=== PATIENT | female | born 1960 | race Caucasian/White ===

== ENCOUNTER 2020-07-17 15:48 | Outpatient (REF) | payer OTHER, SELFPAY | END 2020-07-17 15:49 | disposition home or self-care (01) | LOC: HO.LAB 15:48 | PROVIDERS: Visit Provider Internal Medicine | DX: Z20.828 Contact with and (suspected) exposure to other viral communicable diseases (principal) | CPT/HCPCS: C9803; U0003 ==

== ENCOUNTER 2020-10-13 07:13 | Outpatient (REF) | payer OTHER, SELFPAY ==
[2020-10-13 11:29] LABS: Glucose Urine UA NEG (NEG); Leukocyte Esterase Urine NEG (NEG); Nitrite Urine NEG (NEG); PH 5.5 (5.0-8.0); Urine Blood NEG (NEG); Urine Ketones NEG (NEG); Urine Protein NEG (NEG-TRACE)
[2020-10-13 11:31] LABS: Appearance Urine CLEAR; Color Urine YELLOW
[2020-10-13 11:38] LABS: Hematocrit 44.4 % (37-47); Hemoglobin 15.2 g/dl (12.0-16.0); Mean Corpuscular HGB Conc 34.2 g/dl (31.0-35.0); Mean Corpuscular Hemoglobin 30.9 pg (27.0-33.0); Mean Corpuscular Volume 90.2 fL (80-98); Mean Platelet Volume 11.4 fL (9.4-12.3); Platelet Count 267 X10*3/uL (160-400); Red Blood Count 4.92 X10*6/uL (4.20-5.50); Red Cell Distribution Width 12.6 % (11.0-16.0); White Blood Count 5.9 X10*3/uL (4.8-10.8)
[2020-10-13 11:53] LABS: Alanine Aminotransferase 18 U/L (0-31); Albumin Level 4.3 g/dL (3.5-5.0); Alkaline Phosphatase 82 U/L (39-117); Anion Gap 13 (12-20); Aspartate Amino Transferase 19 U/L (5-31); Bilirubin Total 0.7 mg/dL (0.0-1.0); Blood Urea Nitrogen 17 mg/dL (9-16); Calcium 9.2 mg/dL (8.4-10.2); Carbon Dioxide 27 mmol/L (22-29); Chloride 104 mmol/L (96-108); Cholesterol 209 mg/dL; Estimated Glomerular Filt Rate > 60; Glucose Fasting 97 mg/dL (60-99); HDL Cholesterol 57 mg/dL; LDL Cholesterol Calculated 120 mg/dl; Potassium 4.3 mmol/L (3.3-5.1); Sodium 140 mmol/L (135-145); Total Protein 6.9 g/dL (6.5-8.0); Triglycerides 160 mg/dL
[2020-10-13 12:01] LABS: TSH reflex Free T4 2.02 uIU/mL (0.32-4.0)
[2020-10-13 12:10] LABS: RBC Urine 0-2 /HPF (0); Squamous Epithelial Cell Urine 1+ /LPF; WBC Urine 0-2 /HPF (0-4)
== END 2020-10-13 07:14 | disposition home or self-care (01) ==
LOC: HO.HMGCLDS 07:13
PROVIDERS: PCP Internal Medicine; Visit Provider Internal Medicine
DX: Z00.00 Encounter for general adult medical examination without abnormal findings (principal)
CPT/HCPCS: 36415; 80053; 80061; 81001; 84443; 85027

== ENCOUNTER 2021-01-26 09:16 | Outpatient (REF) | payer OTHER, SELFPAY ==
[2021-01-26 12:16] LABS: Monotest Negative (Negative)
[2021-01-26 13:00] LABS: Influenza A PCR NEGATIVE (Negative); Influenza B PCR NEGATIVE (Negative); Resp Syncy Virus RNA Qual PCR NEGATIVE (Negative); SARS COV2 PCR INHOUSE NEGATIVE (Negative)
[2021-01-27 18:06] LABS: EBV-VCA IgG Ab >750.00 U/mL
== END 2021-01-26 09:17 | disposition home or self-care (01) ==
LOC: HO.HMGCLDS 09:16
PROVIDERS: PCP Internal Medicine; Visit Provider Nurse Practitioner Family
DX: J02.9 Acute pharyngitis, unspecified (principal)
CPT/HCPCS: 0241U; 36415; 86308; 86664; 86665

== ENCOUNTER 2021-05-19 10:09 | Outpatient (REF) | payer OTHER, SELFPAY ==
--- NOTE | ~2021-05-19 | XR_ITS ---
EXAMINATION: XR WRIST, LEFT CLINICAL INFORMATION: Trauma, pain COMPARISON: Radiographs left wrist 08/29/2014. TECHNIQUE: Left wrist is imaged in 4 views. FINDINGS: There is no fracture or dislocation or destructive process. The ulnar variance is neutral. The pronator quadratus fat pad appears normal. There is small chronic cyst mid aspect carpal navicular. Degenerative joint changes are present lateral carpus at first carpometacarpal joint. XR/XR wrist LT min 3V IMPRESSION: 1. No fracture or dislocation. 2. Osteoarthritis first carpometacarpal joint.
== END 2021-05-19 10:10 | disposition home or self-care (01) ==
LOC: HO.HMGCLDS 10:09
PROVIDERS: PCP Internal Medicine; Visit Provider Physician Assistant Medical
DX: S69.92XA Unspecified injury of left wrist, hand and finger(s), initial encounter (principal)
CPT/HCPCS: 73110

== ENCOUNTER 2022-02-01 09:27 | Outpatient (REF) | payer OTHER, SELFPAY ==
--- NOTE | ~2022-02-01 | XR_ITS ---
EXAMINATION: XR RIBS, LEFT CLINICAL INFORMATION: Contusion of bronchial wall of the thorax COMPARISON: Previous chest and right rib x-ray March 2009 TECHNIQUE: 3 views of the left ribs were obtained. FINDINGS: Lungs are clear. No consolidation, pneumothorax, or pleural effusion. The cardiomediastinal silhouette and pulmonary vasculature are normal. There is question of a nondisplaced fracture of the right anterior 10th rib. This is seen on one view only. No other rib fracture. Degenerative changes of the spine. XR/XR ribs LT min 3V w CXR1V IMPRESSION: No evidence for acute disease in the chest. Question nondisplaced right anterior 10th rib fracture.
== END 2022-02-01 09:28 | disposition home or self-care (01) ==
LOC: HO.XRAY 09:27
PROVIDERS: PCP Internal Medicine; Visit Provider Internal Medicine
DX: S20.212D Contusion of left front wall of thorax, subsequent encounter (principal)
CPT/HCPCS: 71101

== ENCOUNTER 2022-05-07 06:41 | Outpatient (REF) | payer OTHER, SELFPAY ==
[2022-05-07 11:09] LABS: MANUAL DIFF FLAG NO
[2022-05-07 11:16] LABS: Basophils Absolute Auto 0.1 X10*3/uL (0.0-0.2); Basophils Percent Auto 1.6 % (0-2); Eosinophils Absolute Auto 0.1 X10*3/uL (0.0-0.4); Hematocrit 45.2 % (37.0-47.0); Hemoglobin 15.1 g/dl (12.0-16.0); Imm Gran Abs Auto 0.01 X10*3/uL (0.00-0.03); Imm Gran Pct Auto 0.2 % (0.0-0.4); Lymphocytes Absolute Auto 1.4 X10*3/uL (1.2-4.9); Lymphocytes Percent Auto 27.5 % (20-40); Mean Corpuscular HGB Conc 33.4 g/dl (31.0-35.0); Mean Corpuscular Hemoglobin 30.3 pg (27.0-33.0); Mean Corpuscular Volume 90.6 fL (80.0-98.0); Mean Platelet Volume 11.2 fL (9.4-12.3); Monocytes Absolute Auto 0.4 X10*3/uL (0.1-1.2); Monocytes Percent Auto 7.7 % (2-11); Platelet Count 232 X10*3/uL (160-400); Red Blood Count 4.99 X10*6/uL (4.20-5.50); Red Cell Distribution Width 12.3 % (11.0-16.0); White Blood Count 4.9 X10*3/uL (4.8-10.8)
[2022-05-07 11:52] LABS: Alanine Aminotransferase 13 U/L (0-31); Albumin Level 4.2 g/dL (3.5-5.0); Alkaline Phosphatase 80 U/L (39-117); Anion Gap 15 (12-20); Aspartate Amino Transferase 17 U/L (5-31); Bilirubin Total 0.6 mg/dL (0.0-1.0); Blood Urea Nitrogen 15 mg/dL (9-16); Calcium 9.5 mg/dL (8.4-10.2); Carbon Dioxide 27 mmol/L (22-29); Chloride 105 mmol/L (96-108); Cholesterol 178 mg/dL; Estimated Glomerular Filt Rate > 60; Glucose Fasting 86 mg/dL (60-99); HDL Cholesterol 56 mg/dL; LDL Cholesterol Calculated 106 mg/dl; Potassium 4.6 mmol/L (3.3-5.1); Sodium 142 mmol/L (135-145); Total Protein 6.8 g/dL (6.5-8.0); Triglycerides 80 mg/dL
[2022-05-07 11:54] LABS: TSH reflex Free T4 1.22 uIU/mL (0.32-4.0); Vitamin D 25-OH Total 43.7 ng/mL (>30)
== END 2022-05-07 06:42 | disposition home or self-care (01) ==
LOC: HO.HMGCLDS 06:41
PROVIDERS: PCP Internal Medicine; Visit Provider Internal Medicine
DX: Z00.00 Encounter for general adult medical examination without abnormal findings (principal); E55.9 Vitamin D deficiency, unspecified
CPT/HCPCS: 36415; 80053; 80061; 82306; 84443; 85025

== ENCOUNTER 2023-01-23 14:03 | Outpatient (REF) | payer OTHER, SELFPAY ==
--- NOTE | ~2023-01-23 | XR_ITS ---
EXAMINATION: XR HAND, RIGHT CLINICAL INFORMATION: Unspecified osteoarthritis COMPARISON: None available. TECHNIQUE: PA, lateral, and oblique views of the right hand. FINDINGS: There is loss of PIP and DIP joint spaces with periarticular spurring involving the DIP joints of second third and fifth and PIP joints second through fifth digits. No visible acute fracture, dislocation or subluxation seen. No soft tissues swelling seen. XR/XR hand RT 2V IMPRESSION: Degenerative arthritic changes PIP and DIP joints. No visible acute fracture or dislocation seen.
== END 2023-01-23 14:04 | disposition home or self-care (01) ==
LOC: HO.HMGCLDS 14:03
PROVIDERS: PCP Internal Medicine; Visit Provider Internal Medicine
DX: M19.90 Unspecified osteoarthritis, unspecified site (principal)
CPT/HCPCS: 73120

== ENCOUNTER 2023-02-03 09:26 | Day surgery (SDC) | payer OTHER, SELFPAY ==
[2023-02-01 15:20] VITALS: BMI 26.5
--- NOTE | 2023-02-02 10:03 | HO.ANESPROP2 ---
HPI - Anesthesia Eval Consult details Narrative: 62yo F for Colonoscopy PMFSH Active Problems Active Problems: All Active Problems (Updated 01/23/23 @ 14:00 by Andrew Sheriff MD) Osteoarthritis (Acute) Vitamin D deficiency (Acute) Contusion, chest wall (Acute) Left wrist injury (Acute) Pharyngitis (Acute) Sore throat (Acute) Thumb pain (Acute) Normal Pap smear (Acute) Annual physical exam (Acute) Past Medical History Medical History Annual physical exam Anxiety Environmental allergies Normal Pap smear Thumb pain Family History Family History Father Hypertension Diabetes Mother Cancer Surgical History Surgical History H/O shoulder surgery History of carpal tunnel surgery Social History Social History Housing: House Alcohol intake: current Alcohol intake frequency: a few times a week Patient Tobacco Use Status: Former Tobacco user e-Cigarette/Vaping Use: Never Used Current occupational status: employed Cognitive needs: No Hearing needs: No Vision needs: Yes Meds Allergies Allergy/AdvReac Type Severity Reaction Status Date / Time Seasonal Allergies Allergy Mild sneezing, Verified 01/23/23 14:05 runny nose Home Medications Medication Instructions Recorded Confirmed Last Taken Type No Known Home Meds 01/23/23 01/23/23 Unknown History Exam Exam Date and Time: February 02, 2023 1003 Height,Weight and Vital Signs: Height 5 ft 5.5 in Weight 73.397 kg Assessment and Plan Assessment Anesthesia Assessment: Chart Reviewed
--- NOTE | 2023-02-03 09:47 | HO.ANESPROP2 ---
[facility] Active Problems Active Problems: All Active Problems (Updated 02/02/23 @ 12:26 by Rosetta Menjivar) Sore throat (Acute) Pharyngitis (Acute) Left wrist injury (Acute) Contusion, chest wall (Acute) Vitamin D deficiency (Acute) Osteoarthritis (Acute) Thumb pain (Acute) Normal Pap smear (Acute) Annual physical exam (Acute) Past Medical History Medical History Annual physical exam Anxiety Environmental allergies Normal Pap smear Seasonal allergies Thumb pain Family History Family History Father Hypertension Diabetes Mother Cancer Family history of problems with anesthesia: No Surgical History Surgical History H/O shoulder surgery History of carpal tunnel surgery History of Problems with Anesthesia: Yes (n&n) Social History Social History Housing: House Alcohol intake: current Alcohol intake frequency: a few times a week Patient Tobacco Use Status: Former Tobacco user e-Cigarette/Vaping Use: Never Used Are you DNR?: No Advance Directives: No Advance Directives Information Provided: Yes Nutrition Risks: No Nutritional Risk Current occupational status: employed Cognitive needs: No Hearing needs: No Vision needs: Yes Meds Allergies Allergy/AdvReac Type Severity Reaction Status Date / Time No Known Allergies Allergy Verified 02/03/23 09:34 Active Medications: Current Medications Lactated Ringer's (Lr) 1,000 mls @ 100 mls/hr IVCONT .Q10H IRENE Ondansetron HCl (Ondansetron Hcl 4 Mg/2 Ml Vial) 4 mg IVPUSH ONCE PRN PRN Reason: Nausea and Vomiting Home Medications Medication Instructions Recorded Confirmed Last Taken Type No Known Home Meds 01/23/23 01/23/23 Unknown History Exam Exam Date and Time: February 03, 2023 0947 Height,Weight and Vital Signs: Height 5 ft 5.5 in Weight 73.397 kg Airway Mallampati Class: II TM Dist: >3cm Neck ROM: Full Loose/Missing/Broken Teeth: No Heart: rrr Lungs: clear Assessment and Plan Final Anesthetic Review Family History of Problems with Anesthesia: No History of Problems with Anesthesia: Yes (n&n) NPO: Yes ASA Class: I Final Preanesthetic Review: No Changes in Pt Med Stat, Meds/Allgs Chart Reviewed, Consent Obtained/Reviewed and Anes Risks/Benef Reviewed Patient Risk: Low Anesthetic Plan Anesthetic Plan: MAC: Disposition: Standard PACU
[2023-02-03 09:56] VITALS: BP 149/63; PULSE 63; RESP 18; TEMP 36.6; O2SAT 98
--- NOTE | 2023-02-03 10:02 | MHC.SHP ---
Pre-Procedural Eval Section A Date of Service: 02/03/23 The patient is an INPATIENT: No The History & Physical has been completed within 30 days and I have reviewed it.: No Section B Chief Complaint: Encounter for screening for malignant neoplasm of Relevant Family History (Specify if Yes): No Relevant Social History: Tobacco Use ( former smoker) Present Medications: see Short Stay Collaborative assessment Medical History: Significant History (Anxiety Environmental allergies) History of Previous Operations: Relevant previous surgery/procedure and date(s) (H/O shoulder surgery History of carpal tunnel surgery) Allergies: Allergies Allergy/AdvReac Type Severity Reaction Status Date / Time No Known Allergies Allergy Verified 02/03/23 09:34 Review of Systems Sugical H&P ROS: Negative: Constitution, Cardiovascular, Respiratory and Gastrointestinal Exam Surgical H&P Exam: Normal: Heart, Normal: Lungs, Normal: Extremities and Normal: Abdomen Plan Diagnosis/Plan: Unchanged I have reviewed the history and physical and performed a pertinent physical examination on my patient. No changes have occurred unless specified. Time Spent With Patient Time: Total time managing care of this patient today ____ minutes.
--- NOTE | 2023-02-03 10:16 | W.PM.OPN ---
Operative Note Operative Note Date of Service: 02/03/23 Narrative: COLONOSCOPY TILL CECUM WITH BIOPSIES Pre-op diagnosis: colon cancer screening (1st colonoscopy) Post-op diagnosis:? colon polyp, diverticulosis, hemorrhoids Endoscopist:? Edna Hernandez MD Anesthesia:?MAC Consent: Indications for the procedure and potential complications of bleeding, perforation, reaction to medications and missed diagnosis were discussed with the patient and informed consent was obtained. Instrument: Olympus PCF H 190 L variable stiffness pediatric colonoscope Monitoring: Vital signs and clinical assessment, intermittent blood pressure monitoring, continuous EKG monitoring, Pulse oximetry and Carbon Dioxide monitoring were done throughout the procedure. Please see anesthesia flowsheet. Colon withdrawl time was 18 minutes. Procedure: The patient was placed in the left lateral decubitis position and pre-procedure medications were administered. After a digital rectal examination of the ano-rectum, the video colonoscope was inserted into the rectum and advanced through the colon to the cecum. The colonoscope was slowly withdrawn in a retrograde panoramic fashion and the colon mucosa was carefully examined including a retroflexed view of the rectum. Findings and interventions are described below. Procedure Difficulty: Without difficulty Findings: Terminal Ileum: Not evaluated Cecum: One 2-3 mm sessile polyp - removed with a cold biopsy Ascending Colon: Normal Transverse Colon: Normal Descending Colon: moderate diverticulosis Sigmoid Colon: Severe diverticulosis with luminal narrowing Rectum: Normal Ano-rectum: Moderate internal hemorrhoids Colon preparation: Good after some irrigation Impression and Post Procedure Diagnosis: Colonoscopy Findings: One small polyp removed Moderate to severe diverticulosis seen in the left colon Moderate hemorrhoids on retroflexed exam. Plan: Await pathology results Patient has an appointment on 02/17/23 in the GI Clinic with Amber Callaway FNP-BC. Repeat Colonoscopy interval based on path results - in 5 years if polyps are adenomatous and 10 years if polyps are hyperplastic. Above findings were reviewed with the patient and colon polyps and diverticulosis handouts were given in the discharge area
[2023-02-03 10:54] VITALS: BP 114/48; PULSE 68; RESP 20; TEMP 36.3; O2SAT 95
[2023-02-03 11:09] VITALS: BP 127/62; PULSE 50; RESP 18; TEMP 36.4; O2SAT 100
== END 2023-02-03 11:44 | disposition home or self-care (01) ==
PROVIDERS: PCP Internal Medicine; Visit Provider Internal Medicine Gastroenterology
PROC: 0DJD8ZZ Inspection of Lower Intestinal Tract, Via Natural or Artificial Opening Endoscopic (ICD-10-PCS; CPT 45378; principal; 2023-02-03 11:00)
DX: Z12.11 Encounter for screening for malignant neoplasm of colon (principal); K63.5 Polyp of colon; K57.30 Diverticulosis of large intestine without perforation or abscess without bleeding; K64.8 Other hemorrhoids; E55.9 Vitamin D deficiency, unspecified; F41.9 Anxiety disorder, unspecified; Z87.891 Personal history of nicotine dependence; Z79.899 Other long term (current) drug therapy
CPT/HCPCS: 45380; 88305

== ENCOUNTER 2023-02-17 11:33 | Outpatient (AMB) | payer OTHER, SELFPAY ==
[2023-02-17 11:37] VITALS: BP 131/63; PULSE 55; BMI 26.4
--- NOTE | 2023-02-17 11:37 | MHC.OFFVIS ---
Intake Vital Signs 02/17/23 11:37 Height 5 ft 5.5 in Weight 160 lb 14.999 oz BMI 26.4 BP 131/63 Blood Pressure Location Lt brachial Position Sitting Pulse 55 Intake Visit Reasons: S/p colon-David Intake Note: Sandra presents in the office as a follow up colonoscopy. CC: She states she is just here for the results to the colonoscopy. 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 Denies any issues with anesthesia in the past.? Denies any history of sleep apnea.? No history infectious diseases in the past or present.? Not on any anticoagulation therapy.? No family or personal history of colon cancer or polyps.? Patient denies melena, hematochezia, unintentional weight loss or ribbon like stools.? Discussed at length the pre-procedure,? prep, diet & medications as well as what to expect prior, during and after the procedure.?? Stressed the importance of good bowel prep. ?Recommended the use of Vaseline or Calmoseptine OTC & baby wipes with bowel movements to promote comfort.? ?Patient verbalizes understanding and agrees to plan of care.? She was given the opportunity to ask questions and all questions answered.? We will see her after the procedure.? Plan Medications New bisacodyl (Dulcolax (bisacodyl)) take 2 tabs at noon the day before your colonoscopy 10 mg (2 x 5 mg) PO ONCE 2 tabs 0RF 1 day Z12.11 polyethylene glycol 3350 (Miralax) As directed by gastroenterology department at [facility] 238 grams PO ONCE 238 grams 0RF Z12.11 COLONOSCOPY SCREENING Findings: Terminal Ileum: Not evaluated Cecum:? One 2-3 mm sessile polyp -? removed with a cold biopsy Ascending Colon:? Normal Transverse Colon:? Normal Descending Colon: ? moderate diverticulosis Sigmoid Colon:? Severe diverticulosis with luminal narrowing Rectum:? Normal Ano-rectum:? Moderate internal hemorrhoids Colon preparation:? Good? after some irrigation Impression and Post Procedure Diagnosis: Colonoscopy Findings: One small polyp removed Moderate to severe diverticulosis seen in the left colon Moderate hemorrhoids on retroflexed exam. Plan: Await pathology results Repeat Colonoscopy interval based on path results - in 5 years if polyps are adenomatous and 10 years if polyps are hyperplastic. PATHOLOGY RESULTS Diagnosis Colon, cecal polyp:? Colonic mucosa with lymphoid aggregates and no specific change; no evidence of adenomatous dysplasia. TODAY'S VISIT: Patient is here today for follow-up and to discuss colonoscopy results. Patient denies any ill effects from the prep, anesthesia or procedure itself. Patient states that she has been feeling well. Discussed with patient colonoscopy results. This was her 1st colonoscopy. Colonic mucosa with lymphoid aggregates without dysplasia found. Patient will need to repeat colonoscopy in 10 years. Diverticulosis of left colon with moderate hemorrhoids. Patient reports that she eats lots of fruits and vegetables. Patient states that she likes to eat raw vegetables. Patient denies any abdominal pain or discomfort. Denies any GI concerning symptoms. [facility] Medical History (Updated 02/17/23 @ 11:47 by Amber Callaway [facility]) Annual physical exam Anxiety Diverticulosis Environmental allergies Normal Pap smear Seasonal allergies Thumb pain Surgical History H/O shoulder surgery History of carpal tunnel surgery Hx of colonoscopy Family History Father Hypertension Diabetes Mother Cancer Social History Housing: House Alcohol intake: current Alcohol intake frequency: a few times a week Patient Tobacco Use Status: Former Tobacco user e-Cigarette/Vaping Use: Never Used Current occupational status: employed Cognitive needs: No Hearing needs: No Vision needs: Yes Review of Systems Const Denies weight gain and Denies weight loss ENT Reports no additional complaints, Denies dysphagia and Denies odynophagia Card Reports no additional complaints Resp Reports no additional complaints GI Denies abdominal pain, Denies belching, Denies melena, Denies bloating, Denies change in bowel habits, Denies dysphagia, Denies excessive flatus, Denies dyspepsia, Denies heartburn, Denies diarrhea, Denies loose stools, Denies nausea, Denies odynophagia and Denies vomiting Musc Reports no additional complaints Neuro Reports no additional complaints Psych Reports no additional complaints Endo Reports no additional complaints Physical Exam Vital Signs: Last Vital Signs Pulse 55 02/17/23 11:37 BP 131/63 02/17/23 11:37 BMI result Body Mass Index 26.4 Const General: healthy appearing, no acute distress and well developed Nutritional Appearance: well nourished Orientation/consciousness: patient oriented x3 HEENT Head: Yes normal to inspection, Yes normocephalic and Yes atraumatic Face and sinus: Yes normal facial exam Mouth: Normal oral and palatal mucosa present Throat: Yes posterior oropharynx normal, Yes tonsils normal and Yes uvula midline Eyes General: appearance normal, both eyes and all related structures Neck Neck: Yes normal visual inspection, Yes full ROM and Yes trachea midline Thyroid: Thyroid normal Resp Effort & Inspection: normal respiratory effort, able to speak in complete sentences, no tracheal deviation and symmetric chest movement Auscultation: clear to auscultation bilaterally Cardio Rate: regular rate Heart sounds: S1 normal heart sound present and S2 normal heart sound present GI Inspection: Yes normal to inspection and No distended Palpation (GI): Soft to palpation, not firm, nontender and No hepatosplenomegaly present Auscultation: normal bowel sounds General: Yes no CVA tenderness Back/Spine/Pelvis Back: no CVA tenderness Skin General skin exam: elasticity normal, turgor normal and dry skin Neuro General: patient oriented x3 Psych Appearance: grossly normal Mental Status: mental status grossly normal Speech and movement: Normal speech and movement present Affect: normal affect Assessment & Plan Assessment & Plan (1) Diverticulosis: Code(s): K57.90 - Diverticulosis of intestine, part unspecified, without perforation or abscess without bleeding Plan: Moderate to severe diverticulosis of left colon. Discussed with patient in detail high-fiber diet. Information about diverticulosis, diet and high-fiber diet discussed with patient. (2) Status post colonoscopy: Code(s): Z98.890 - Other specified postprocedural states Plan: Benign polyps found. Patient will need to repeat colonoscopy in 10 years, sooner if clinically necessary. Patient will follow-up with us on as-needed basis. She is agreeable to this plan and verbalizes understanding of instructions. She was given the opportunity to ask questions and all questions answered. Thank you for allowing me to participate in her care Coding Level of Care Code Est Pt Level 3 (17382) Diagnoses Diverticulosis K57.90 Status post colonoscopy Z98.890 Time Spent (min) 25 Comment 15 minute spent with patient and additional 10 minutes spent reviewing her records
== END 2023-02-17 14:14 | disposition home or self-care (01) ==
PROVIDERS: PCP Internal Medicine; Visit Provider Nurse Practitioner Family
DX: K57.90 Diverticulosis of intestine, part unspecified, without perforation or abscess without bleeding (principal); Z98.890 Other specified postprocedural states
CPT/HCPCS: 99213

== ENCOUNTER → 2023-02-17 11:33 | Outpatient (BNVA) | payer OTHER, SELFPAY | PROVIDERS: PCP Internal Medicine; Visit Provider Nurse Practitioner Family ==

== ENCOUNTER 2023-03-14 12:21 | Outpatient (AMB) | payer OTHER, SELFPAY ==
[2023-03-14 12:28] VITALS: BMI 26.2
--- NOTE | 2023-03-14 12:28 | A.OFFVIS_ITS ---
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 Patient reports locking and catching of her right middle finger with pain. Also has numbness and tingling for about 4-5 months, worsens at night time. Hx of CTR of B/L hands in mid 90's. Denies any injury or trauma. States she is not able to make a full close fist due to stiffness. 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 She states she has pain, catching, locking, numbness and tingling of her finger which is aggravated at night. She is unable to make a fist due to stiffness in her finger. 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 [facility] Medical History (Updated 03/09/23 @ 14:47 by Mae Womack MD) Annual physical exam Anxiety Diverticulosis Environmental allergies Normal Pap smear Seasonal allergies Thumb pain Surgical History H/O shoulder surgery History of carpal tunnel surgery Hx of colonoscopy Family History Father Hypertension Diabetes Mother Cancer Social History (Updated 03/14/23 @ 12:35 by Jaquelin Malloy [facility]) Housing: House Alcohol intake: current Alcohol intake frequency: a few times a week Patient Tobacco Use Status: Former Tobacco user e-Cigarette/Vaping Use: Never Used Current occupational status: employed 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 Cognitive needs: No Hearing needs: No Vision needs: Yes Review of Systems Const All systems reviewed & are unremarkable except as noted in HPI and below Physical Exam Vital Signs: BMI result Body Mass Index 26.2 Const General: cooperative, healthy appearing, comfortable, no acute distress, well developed and alert Orientation/consciousness: patient oriented x3 HEENT Head: Yes normal to inspection, Yes normocephalic and Yes atraumatic Eyes General: appearance normal, both eyes and all related structures Resp Effort & Inspection: normal respiratory effort and able to speak in complete sentences Cardio Rate: regular rate Peripheral pulses: Peripheral pulses 2+ throughout GI Palpation (GI): Soft to palpation Skin Lesions: no lesions Rashes: no rashes Neuro General: patient oriented x3 Extrem Other: Right middle finger: Tender nodule along the A1 zo with active catching and locking. NVI. Assessment & Plan Assessment & Plan (1) Trigger finger, right middle finger: Code(s): M65.331 - Trigger finger, right middle finger Plan We discussed options which include conservative vs operative treatment. Since the patient has been symptomatic for several months and it is impacting their daily life, the decision was made to undergo Trigger release. We discussed risk, benefits and alternatives. Risk including but not limited to infection, stiffness, ongoing trigger or catching. She does understand all this and would like to proceed with right middle finger trigger release with Dr. Booker. She will be booked accordingly. Patient Instructions: Scribed for Apolinar Arellano PA-C, by Samuel Hoover medical technician assistant, on 03/14/2023 at 12:30 PM IBRAHIMA. IApolinar PA-C, have personally reviewed and agree with the information entered by the scribe. Coding Level of Care Code New Pt Level 4 (32835) Diagnoses Trigger finger, right middle finger M65.331
== END 2023-03-14 12:59 | disposition home or self-care (01) ==
PROVIDERS: PCP Internal Medicine; Visit Provider Physician Assistant
DX: M65.331 Trigger finger, right middle finger (principal)
CPT/HCPCS: 99204

== ENCOUNTER → 2023-03-14 12:21 | Outpatient (BNVA) | payer OTHER, SELFPAY | PROVIDERS: PCP Internal Medicine; Visit Provider Physician Assistant | DX: M65.331 Trigger finger, right middle finger (principal) | CPT/HCPCS: 99202 ==

== ENCOUNTER 2023-05-04 07:00 | Outpatient (REF) | payer OTHER, SELFPAY ==
[2023-05-04 11:00] LABS: MANUAL DIFF FLAG NO
[2023-05-04 11:13] LABS: Basophils Absolute Auto 0.1 X10*3/uL (0.0-0.2); Basophils Percent Auto 1.4 % (0-2); Eosinophils Absolute Auto 0.1 X10*3/uL (0.0-0.4); Eosinophils Percent Auto 1.8 % (0-4); Hematocrit 45.2 % (37.0-47.0); Hemoglobin 15.3 g/dl (12.0-16.0); Imm Gran Abs Auto 0.02 X10*3/uL (0.00-0.03); Imm Gran Pct Auto 0.4 % (0.0-0.4); Lymphocytes Absolute Auto 1.5 X10*3/uL (1.2-4.9); Lymphocytes Percent Auto 29.8 % (20-40); Mean Corpuscular HGB Conc 33.8 g/dl (31.0-35.0); Mean Corpuscular Hemoglobin 30.2 pg (27.0-33.0); Mean Corpuscular Volume 89.2 fL (80.0-98.0); Mean Platelet Volume 11.7 fL (9.4-12.3); Monocytes Absolute Auto 0.3 X10*3/uL (0.1-1.2); Monocytes Percent Auto 6.7 % (2-11); Neutrophils Percent Auto 59.9 % (45-73); Platelet Count 221 X10*3/uL (160-400); Red Blood Count 5.07 X10*6/uL (4.20-5.50); Red Cell Distribution Width 12.3 % (11.0-16.0)
[2023-05-04 12:01] LABS: Alanine Aminotransferase 14 U/L (0-31); Albumin Level 4.4 g/dL (3.5-5.0); Alkaline Phosphatase 79 U/L (39-117); Anion Gap 14 (12-20); Aspartate Amino Transferase 20 U/L (5-31); Bilirubin Total 0.8 mg/dL (0.0-1.0); Blood Urea Nitrogen 21 mg/dL (9-16); Calcium 9.8 mg/dL (8.4-10.2); Carbon Dioxide 25 mmol/L (22-29); Chloride 106 mmol/L (96-108); Cholesterol 200 mg/dL (<200); Estimated Glomerular Filt Rate > 60; Glucose Fasting 101 mg/dL (60-99); HDL Cholesterol 62 mg/dL (>40); LDL Cholesterol Calculated 122 mg/dL (<100); Potassium 4.1 mmol/L (3.3-5.1); Sodium 141 mmol/L (135-145); Total Protein 7.6 g/dL (6.5-8.0); Triglycerides 82 mg/dL (<150); Vitamin D 25-OH Total 62.1 ng/mL (>30)
== END 2023-05-04 07:01 | disposition home or self-care (01) ==
LOC: HO.HMGCLDS 07:00
PROVIDERS: PCP Internal Medicine; Visit Provider Internal Medicine
DX: Z00.00 Encounter for general adult medical examination without abnormal findings (principal); E55.9 Vitamin D deficiency, unspecified
CPT/HCPCS: 36415; 80053; 80061; 82306; 85025

== ENCOUNTER 2023-05-11 07:29 | Outpatient (AMB) | payer OTHER, SELFPAY ==
[2023-05-11 07:32] VITALS: BP 118/64; PULSE 63; O2SAT 98; BMI 26.5
--- NOTE | 2023-05-11 07:32 | A.OFFPC_ITS ---
Vital Signs 05/11/23 07:32 Height 5 ft 5.5 in Weight 162 lb BMI 26.5 BP 118/64 Blood Pressure Location Lt brachial Position Sitting Pulse 63 Pulse Source Pulse Oximeter Pulse Oximetry (%) 98 Oxygen Delivery Method Room Air Intake Visit Reasons: Annual PE Intake Note: Pt is here today for PE. Allergies shellfish derived Allergy (Verified 05/11/23 07:35) Anaphylaxis Medication List - Last Reconciled 05/11/23 by Mae Womack MD biotin (Hair, Skin and Nails (biotin)) mcg PO calcium-vit D3-mag gly-zinc 400 mg-83.3 mcg -166.7 mg caps PO multivitamin 1 tab PO DAILY Tobacco use date assessed: 05/11/23 Fall risk assessment: No Falls in past year Last assessed Fall Risk: 05/11/23 Dental Screening Dental Screen Date: 05/11/23 Did you have a dental visit in the last 12 months?: Yes Did you have a dental problem in the last 6 months where you did not have access to dental care?: No Was dental information given to patient?: Patient has dentist HPI Annual PE 2 HPI Details Pt presents for PE PFSH Medical History Diverticulosis Seasonal allergies Thumb pain Normal Pap smear Annual physical exam Anxiety Environmental allergies Surgical History Hx of colonoscopy H/O shoulder surgery History of carpal tunnel surgery Family History Father Hypertension Diabetes Mother Cancer Social History Housing: House Alcohol intake: current Alcohol intake frequency: a few times a week Patient Tobacco Use Status: Former Tobacco user e-Cigarette/Vaping Use: Never Used Current occupational status: employed 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 1. Little interest or pleasure in doing things: not at all 2. Feeling down, depressed, or hopeless: not at all 3. Trouble falling or staying asleep, or sleeping too much: not at all 4. Feeling tired or having little energy: not at all 5. Poor appetite or overeating: not at all 6. Feeling bad about yourself - or that you are a failure or have let yourself or your family down: not at all 7. Trouble concentrating on things, such as reading the newspaper or watching television: not at all 8. Moving or speaking so slowly that other people could have noticed. Or the opposite - being so fidgety or restless that you have been moving around a lot more than usual: not at all 9. Thoughts that you would be better off or of hurting yourself in some way: not at all Total score: 0 Depression Screening Interpretation: Negative Depression Screening Done: Yes Source: Developed by Drs. Cj Boyle, Rachael Pelaez, Mark Zhou and colleagues, with an educational leeann from [employer]. Thrive Questionnaire Date Thrive assessed: 05/11/23 I am a: Patient What is your living situation today?: I have a steady place to live Within the past 12 months, did the food you bought not last and you didn't have the money to get more?: Never true Within the past 12 months, did you worry whether your food would run out before you got money to buy more?: Never true Do you have trouble paying for medicines?: No Do you have trouble getting transportation to medical appointments?: No Do you have trouble paying your heating and electricity bill?: No Do you have trouble taking care of your child, family member or friend?: No Do you have trouble with day-to-day activities such as bathing, preparing meals, shopping, managing finances, etc.?: No Are you currently unemployed and looking for a job?: No Are you interested in more education?: No Please select the resources that you would like help with: None Currently or been in a relationship where the following occur: no concerns reported AUDIT C Alcohol Use Questionnaire (AUDIT-C) 1. How often do you have a drink containing alcohol?: Monthly or less 2. How many drinks containing alcohol do you have on a typical day when you are drinking?: 1 or 2 3. How often do you have six or more drinks on one occasion?: Never Total Score: 1 LINDSAY-7 AMB Questionnaire LINDSAY-7 Date LINDSAY - 7 assessed: 05/11/23 Feeling nervous, anxious, or on edge: 0 = Not at all Not being able to stop or control worryin = Not at all Worrying too much about different things: 0 = Not at all Trouble relaxin = Not at all Being so restless that it is hard to sit still: 0 = Not at all Becoming easily annoyed or irritable: 0 = Not at all Feeling afraid as if something awful might happen: 0 = Not at all Total LINDSAY-7 score (0-4 normal; 5-9 mild; 10-14 moderate; 15-21 severe): 0 Source: Developed by Drs. Cj Boyle, Rachael Pelaez, Mark Zhou and colleagues, with an educational leeann from [employer]. Review of Systems Const All systems reviewed & are unremarkable except as noted in HPI and below Reports no additional complaints Eyes Reports no additional complaints ENT Reports no additional complaints Card Reports no additional complaints GI Reports no additional complaints Reports no additional complaints Physical exam (Primary Care) Vital Signs: Last Vital Signs Pulse 63 05/11/23 07:32 BP 118/64 05/11/23 07:32 Pulse Ox 98 05/11/23 07:32 Oxygen Delivery Method Room Air 05/11/23 07:32 BMI result Body Mass Index 26.5 Tobacco/Smoking Status: Tobacco use Status Tobacco use date assessed 05/11/23 05/11/23 07:39 Patient Tobacco Use Status Former Tobacco user 05/11/23 07:32 e-Cigarette/Vaping Use Never Used 05/11/23 07:32 PHQ-9: PHQ-9 Score PHQ-9: Total score 0 05/11/23 07:39 Depression Screening Interpretation: Negative Thrive Assessment: Date of Thrive Assessment Date Thrive assessed 05/11/23 05/11/23 07:39 Currently or been in a relationship where the following occur: no concerns reported Const General: no acute distress HENMT Head: Yes normal to inspection General nose exam: Normal external nose present Eyes General: appearance normal, both eyes and all related structures Neck Neck: Yes no lymphadenopathy and Yes supple Resp Effort & Inspection: normal respiratory effort Auscultation: clear to auscultation bilaterally Cardio Rhythm: regular rhythm Heart sounds: S1 normal heart sound present and S2 normal heart sound present GI Inspection: Yes normal to inspection Palpation (GI): Soft to palpation Percussion: Yes normal to percussion Auscultation: normal bowel sounds Assessment and Plan Assessment & Plan (1) Annual physical exam: Code(s): Z00.00 - Encounter for general adult medical examination without abnormal findings Plan: WELL BALANCED DIET, REGULAR EXERCISE DISCUSSED, pt is up to date with mammogram/colonoscopy/pap by supervisor line department (2) Trigger finger, right middle finger: Code(s): M65.331 - Trigger finger, right middle finger Plan: f/u with hand surgeon Orders: Orders Comprehensive Traver. Panel Fast 365 Days Z00.00 - Encounter for general adult medical examination without abnormal findings Lipid Panel 365 Days Z00.00 - Encounter for general adult medical examination without abnormal findings Complete Blood Count Auto Diff 365 Days Z00.00 - Encounter for general adult medical examination without abnormal findings TSH reflex Free T4 365 Days Z00.00 - Encounter for general adult medical examination without abnormal findings Coding Level of Care Code Est Pt Prev Care 40-64y(20876) Diagnoses Annual physical exam Z00.00 Trigger finger, right middle finger M65.331
== END 2023-05-11 09:24 | disposition home or self-care (01) ==
PROVIDERS: Visit Provider Internal Medicine
DX: Z00.00 Encounter for general adult medical examination without abnormal findings (principal); M65.331 Trigger finger, right middle finger
CPT/HCPCS: 99396

== ENCOUNTER 2023-05-29 08:06 | Day surgery (SDC) | payer OTHER, SELFPAY ==
--- NOTE | 2023-05-29 08:08 | W.PM.OPN ---
Operative Note Operative Note Date of Service: 05/29/23 Narrative: Operative Note Preop diagnosis: 1. Right middle finger Trigger finger Postop diagnosis: 1. Right middle finger Trigger finger Procedure: 1. Right middle finger A1 zo release Surgeon: Neisha Booker MD Anesthesia: local block using 1% lidocaine with epinephrine Findings: No locking or catching after A1 zo release EBL: Less than 5 mL Tourniquet time: None Specimens: None Complications: None Disposition: Brought to recovery room in stable condition Plan: Follow-up for 10-14 days for wound check and suture removal Indications: The patient is 62 years old, with a right middle finger trigger finger that has been unresponsive to nonoperative management. The risks and benefits of operative treatment including but not limited to risk of damage to blood vessels, nerves, tendons, infection, persistent pain, persistent symptoms, recurrence or possible need for additional surgery were discussed with the patient and the patient wishes to proceed with surgery. Procedure: Once consent was obtained a local block was performed in the preop area using a combination of 1% lidocaine with epinephrine. The patient was then brought back to the operating suite and placed on the operative table in supine position. The right upper extremity was prepped and draped in a standard surgical fashion. Once assured that we had a good block, a 1.5 cm oblique incision was made centered over the A1 zo of the right middle finger . The incision was made through the skin to the subcutaneous tissues using a #15 blade. Careful dissection was made down to the level of the A1 zo using tenotomy scissors, with care being taken to protect the nearby neurovascular structures. A longitudinal incision was made in the A1 zo 1st using a #15 blade, then using tenotomy scissors under direct visualization. The A1 zo was noted to be thickened. Following our A1 zo release, we no longer saw any locking or catching of the digit with flexion and extension. Once satisfied with our A1 zo release the wound was copiously irrigated with normal saline and hemostasis was obtained with a brief period of local pressure. The skin edges were reapproximated with some 5.0 nylon suture material and a sterile dressing was applied. The patient appears to have tolerated the procedure well and with no complications. All digits were well vascularized at the conclusion of the case.
[2023-05-29 08:57] VITALS: BMI 25.3
--- NOTE | 2023-05-29 09:25 | MHC.SHP ---
Pre-Procedural Eval Section A Date of Service: 05/29/23 The patient is an INPATIENT: No Changes since office visit: No Cold of Flu in the past 2 weeks, No New Medical Problems, No Changes in Medication and No Patient answered all questions The History & Physical has been completed within 30 days and I have reviewed it.: Yes Section B Chief Complaint: Trigger finger, right middle finger Allergies: Allergies Allergy/AdvReac Type Severity Reaction Status Date / Time shellfish derived Allergy Anaphylaxis Verified 05/29/23 08:57 Plan I have reviewed the history and physical and performed a pertinent physical examination on my patient. No changes have occurred unless specified. Time Spent With Patient Time: Total time managing care of this patient today ____ minutes.
[2023-05-29 10:58] VITALS: PULSE 58; RESP 16
== END 2023-05-29 10:59 | disposition home or self-care (01) ==
PROVIDERS: PCP Internal Medicine; Visit Provider Orthopaedic Surgery
PROC: (CPT 26055; principal; 2023-05-29 10:00)
DX: M65.331 Trigger finger, right middle finger (principal); R20.0 Anesthesia of skin; R20.2 Paresthesia of skin; F41.9 Anxiety disorder, unspecified; J30.2 Other seasonal allergic rhinitis; Z98.890 Other specified postprocedural states; Z87.891 Personal history of nicotine dependence
CPT/HCPCS: 26055; J0171

== ENCOUNTER → 2023-05-29 08:06 | Outpatient (BNV) | payer OTHER, SELFPAY | PROVIDERS: PCP Internal Medicine; Visit Provider Orthopaedic Surgery | DX: M65.331 Trigger finger, right middle finger (principal) | CPT/HCPCS: 26055 ==

== ENCOUNTER 2023-06-13 13:28 | Outpatient (AMB) | payer OTHER, SELFPAY ==
--- NOTE | 2023-06-13 13:39 | A.OFFVIS_ITS ---
Intake Vital Signs 06/13/23 13:44 Height 5 ft 6 in Weight 157 lb BMI 25.3 Intake Visit Reasons: PO-Rt MF Trigger Release 05/29 Intake Note: This is a 62 year old female that presents for a right MF trigger release performed on 05/29/23. She reports triggering has improved. Sutures removed and steri stripsapplied. Allergies shellfish derived Allergy (Verified 06/13/23 13:45) Anaphylaxis HPI PO-Rt MF Trigger Release 05/29 HPI Details The patient is a 62-year-old woman who is status post a right middle finger trigger release with me on 05/29/2023. She says that she no longer has locking and catching and is happy with that. She did accidentally grab something, striking the surgical site a few days ago. She was a little worried about that, but it feels better now. 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 Her incision is healing well with no erythema drainage or evidence of infection. Sutures removed and Steri-Strips applied. She can make a nice fist and extend all of her digits and no longer has locking or catching. Sensation intact to the tips of all digits. Cap refill brisk. Assessment & Plan Assessment & Plan (1) Trigger finger, right middle finger: Code(s): M65.331 - Trigger finger, right middle finger Plan Assessment and plan: 1. Right middle finger trigger finger status post release Date of surgery 05/29/2023 She appears to be doing well postoperatively. I educated her about the postoperative course, and about not lifting anything heavy for the next 2 weeks. She already has very good range of motion. This point she can follow up p.r.n.. Coding Level of Care Code Global (41895) Diagnoses Trigger finger, right middle finger M65.331
[2023-06-13 13:44] VITALS: BMI 25.3
== END 2023-06-13 14:19 | disposition home or self-care (01) ==
PROVIDERS: PCP Internal Medicine; Visit Provider Orthopaedic Surgery
DX: M65.331 Trigger finger, right middle finger (principal)
CPT/HCPCS: 99024

== ENCOUNTER → 2023-06-13 13:28 | Outpatient (BNVA) | payer OTHER, SELFPAY | PROVIDERS: PCP Internal Medicine; Visit Provider Orthopaedic Surgery ==

== ENCOUNTER → 2023-06-27 13:37 | Outpatient (BNVA) | payer OTHER, SELFPAY | PROVIDERS: PCP Internal Medicine; Visit Provider Orthopaedic Surgery ==

== ENCOUNTER 2023-06-28 13:43 | Outpatient (AMB) | payer OTHER, SELFPAY ==
[2023-06-28 13:47] VITALS: BMI 25.3
--- NOTE | 2023-06-28 13:47 | A.OFFVIS_ITS ---
Intake Vital Signs 06/28/23 13:47 Height 5 ft 6 in Weight 157 lb BMI 25.3 Intake Visit Reasons: PO-Rt MF Trigger Release 05/29 Intake Note: This is a 62 year old female that presents for a right MF trigger release performed on 05/29/23. She reports triggering has gone away. 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 She would like clarification in a note for her employer about her work restrictions. Allergies shellfish derived Allergy (Verified 06/28/23 13:53) Anaphylaxis HPI PO-Rt MF Trigger Release 05/29 HPI Details Sandra is a 63 year old right hand dominant woman returns S/P right middle finger trigger release, DOS: 05/29/23. 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 She is asking for a new note for work. 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 She says that she no longer has locking and catching and is happy with that. 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 She can make a nice fist and extend all of her digits and no longer has locking or catching. Still with some mild swelling and tenderness in the A1 zo area. Sensation is intact Cap refill is brisk Psych Appearance: grossly normal Affect: normal affect Attitude: cooperative Assessment & Plan Assessment & Plan (1) Trigger finger, right middle finger: Code(s): M65.331 - Trigger finger, right middle finger Plan Assessment and plan: 1. Right middle finger trigger finger, S/P release DOS: 05/29/23 She appears to be doing well postoperatively. 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 Then return to full duty She can follow up prn Scribed for Neisha Booker MD by Kj Joyce medical radiation dosimetrist, on 06/28/23 at 2:00 PM, EST. Coding Level of Care Code Global (60092) Diagnoses Trigger finger, right middle finger M65.331
== END 2023-06-28 14:04 | disposition home or self-care (01) ==
PROVIDERS: PCP Internal Medicine; Visit Provider Orthopaedic Surgery
DX: M65.331 Trigger finger, right middle finger (principal)
CPT/HCPCS: 99024

== ENCOUNTER → 2023-06-28 13:43 | Outpatient (BNVA) | payer OTHER, SELFPAY | PROVIDERS: PCP Internal Medicine; Visit Provider Orthopaedic Surgery ==

== ENCOUNTER 2024-05-11 06:39 | Outpatient (REF) | payer OTHER, SELFPAY ==
[2024-05-11 11:08] LABS: MANUAL DIFF FLAG NO
[2024-05-11 11:12] LABS: Basophils Absolute Auto 0.1 X10*3/uL (0.0-0.2); Basophils Percent Auto 1.3 % (0-2); Eosinophils Absolute Auto 0.1 X10*3/uL (0.0-0.4); Hematocrit 46.2 % (37.0-47.0); Hemoglobin 15.3 g/dl (12.0-16.0); Imm Gran Abs Auto 0.01 X10*3/uL (0.00-0.03); Imm Gran Pct Auto 0.2 % (0.0-0.4); Lymphocytes Absolute Auto 1.2 X10*3/uL (1.2-4.9); Lymphocytes Percent Auto 25.4 % (20-40); Mean Corpuscular HGB Conc 33.1 g/dl (31.0-35.0); Mean Corpuscular Hemoglobin 30.5 pg (27.0-33.0); Monocytes Absolute Auto 0.3 X10*3/uL (0.1-1.2); Monocytes Percent Auto 5.8 % (2-11); Neutrophils Percent Auto 64.3 % (45-73); Platelet Count 238 X10*3/uL (160-400); Red Blood Count 5.02 X10*6/uL (4.20-5.50); Red Cell Distribution Width 12.8 % (11.0-16.0); White Blood Count 4.7 X10*3/uL (4.8-10.8)
[2024-05-11 11:30] LABS: Alanine Aminotransferase 18 U/L (0-31); Albumin Level 4.2 g/dL (3.5-5.0); Alkaline Phosphatase 71 U/L (39-117); Anion Gap 11 (12-20); Aspartate Amino Transferase 19 U/L (5-31); Bilirubin Total 0.5 mg/dL (0.0-1.0); Blood Urea Nitrogen 13 mg/dL (9-16); Carbon Dioxide 29 mmol/L (22-29); Chloride 106 mmol/L (96-108); Cholesterol 174 mg/dL (<200); Estimated Glomerular Filt Rate > 60; Glucose Fasting 89 mg/dL (60-99); HDL Cholesterol 57 mg/dL (>40); LDL Cholesterol Calculated 102 mg/dL (<100); Potassium 4.3 mmol/L (3.3-5.1); Sodium 142 mmol/L (135-145); Total Protein 7.2 g/dL (6.5-8.0); Triglycerides 77 mg/dL (<150)
[2024-05-11 11:47] LABS: TSH reflex Free T4 1.48 uIU/mL (0.32-4.0)
== END 2024-05-11 06:40 | disposition home or self-care (01) ==
LOC: HO.HMGCLDS 06:39
PROVIDERS: PCP Internal Medicine; Visit Provider Internal Medicine
DX: Z00.00 Encounter for general adult medical examination without abnormal findings (principal); Z20.2 Contact with and (suspected) exposure to infections with a predominantly sexual mode of transmission
CPT/HCPCS: 36415; 80053; 80061; 84443; 85025

== ENCOUNTER 2024-05-16 07:33 | Outpatient (AMB) | payer OTHER, SELFPAY ==
[2024-05-16 07:46] VITALS: BP 122/70; PULSE 73; O2SAT 98; BMI 25.7
--- NOTE | 2024-05-16 07:46 | MHC.PC.OV ---
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 Required: No Accompanied by: Self / Same As Patient Allergies shellfish derived Allergy (Verified 05/16/24 07:48) Anaphylaxis Medication List - Last Reconciled 05/16/24 by Mae Womack MD biotin (Hair, Skin and Nails (biotin)) mcg PO calcium-vit D3-mag gly-zinc 400 mg-83.3 mcg -166.7 mg caps PO multivitamin 1 tab PO DAILY Tobacco use date assessed: 05/16/24 Fall risk assessment: No Falls in past year Last assessed Fall Risk: 05/16/24 Dental Screening Dental Screen Date: 05/16/24 Did you have a dental visit in the last 12 months?: Yes Did you have a dental problem in the last 6 months where you did not have access to dental care?: No Was dental information given to patient?: Patient has dentist HPI Annual PE HPI Details Pt presents for PE. Pt complains of chronic neck pain and stiffness and worsening of chronic R shoulder pain for at least last 2 weeks after straining in a work. 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 She denies weakness or numbness in extremities. Patient is physically active walking every day and biking at least twice a week. 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 1. Little interest or pleasure in doing things: not at all 2. Feeling down, depressed, or hopeless: not at all 3. Trouble falling or staying asleep, or sleeping too much: not at all 4. Feeling tired or having little energy: not at all 5. Poor appetite or overeating: not at all 6. Feeling bad about yourself - or that you are a failure or have let yourself or your family down: not at all 7. Trouble concentrating on things, such as reading the newspaper or watching television: not at all 8. Moving or speaking so slowly that other people could have noticed. Or the opposite - being so fidgety or restless that you have been moving around a lot more than usual: not at all 9. Thoughts that you would be better off or of hurting yourself in some way: not at all Total score: 0 Depression Screening Interpretation: Negative Depression Screening Done: Yes 61929 - PHQ-9 Billing: Yes Source: Developed by Drs. Cj Boyle, Rachael Pelaez, Mark Zhou and colleagues, with an educational leeann from [employer]. Thrive Questionnaire Date Thrive assessed: 05/16/24 I am a: Patient What is your living situation today?: I have a steady place to live Within the past 12 months, did the food you bought not last and you didn't have the money to get more?: Never true Within the past 12 months, did you worry whether your food would run out before you got money to buy more?: Never true Do you have trouble paying for medicines?: No Do you have trouble getting transportation to medical appointments?: No Do you have trouble paying your heating and electricity bill?: No Do you have trouble taking care of your child, family member or friend?: No Do you have trouble with day-to-day activities such as bathing, preparing meals, shopping, managing finances, etc.?: No Are you currently unemployed and looking for a job?: No Are you interested in more education?: No Please select the resources that you would like help with: None Currently or been in a relationship where the following occur: No concerns reported THRIVE Score: 0 AUDIT C Alcohol Use Questionnaire (AUDIT-C) 1. How often do you have a drink containing alcohol?: Monthly or less 2. How many drinks containing alcohol do you have on a typical day when you are drinking?: 1 or 2 3. How often do you have six or more drinks on one occasion?: Never Total Score: 1 Score Reviewed/Action Taken: Yes LINDSAY-7 AMB Questionnaire LINDSAY-7 Date LINDSAY - 7 assessed: 05/16/24 Feeling nervous, anxious, or on edge: 0 = Not at all Not being able to stop or control worryin = Not at all Worrying too much about different things: 0 = Not at all Trouble relaxin = Not at all Being so restless that it is hard to sit still: 0 = Not at all Becoming easily annoyed or irritable: 1 = Several days Feeling afraid as if something awful might happen: 0 = Not at all Total LINDSAY-7 score (0-4 normal; 5-9 mild; 10-14 moderate; 15-21 severe): 1 Source: Developed by Drs. Cj Boyle, Rachael Pelaez, Mark Zhou and colleagues, with an educational leeann from [employer]. LINDSAY-7 Assessment Billing LINDSAY-7 Assessment Tool: LINDSAY-7 Assessment 85536 Review of Systems Const All systems reviewed & are unremarkable except as noted in HPI and below Eyes Reports no additional complaints ENT Reports no additional complaints Card Reports no additional complaints Resp Reports no additional complaints GI Reports no additional complaints Reports no additional complaints Physical exam (Primary Care) Vital Signs: Last Vital Signs Pulse 73 05/16/24 07:46 BP 122/70 05/16/24 07:46 Pulse Ox 98 05/16/24 07:46 Oxygen Delivery Method Room Air 05/16/24 07:46 BMI result Body Mass Index 25.7 Tobacco/Smoking Status: Tobacco use Status Tobacco use date assessed 05/16/24 05/16/24 07:50 Patient Tobacco Use Status Former Tobacco user 05/16/24 07:50 e-Cigarette/Vaping Use Never Used 05/16/24 07:50 PHQ-9: PHQ-9 Score PHQ-9: Total score 0 05/16/24 07:50 Depression Screening Interpretation: Negative Thrive Assessment: Date of Thrive Assessment Date Thrive assessed 05/16/24 05/16/24 07:50 Currently or been in a relationship where the following occur: No concerns reported Const General: no acute distress HENMT Head: Yes normal to inspection Ears: hearing grossly normal bilaterally Mouth: Normal oral and palatal mucosa present Eyes General: appearance normal, both eyes and all related structures Neck Neck: Yes supple Resp Effort & Inspection: normal respiratory effort Auscultation: clear to auscultation bilaterally Cardio Rhythm: regular rhythm Heart sounds: S1 normal heart sound present and S2 normal heart sound present GI Inspection: Yes normal to inspection Palpation (GI): Soft to palpation Percussion: Yes normal to percussion Auscultation: normal bowel sounds Extrem Other: The significantly decreased range of motion right shoulder anterior and lateral aspect tenderness no joint swelling erythema warmth, there is the paraspinal tenderness and muscle spasm in lower cervical region, motor strength is 5/5 deep tendon reflexes 1+ bilaterally General: Yes no clubbing, cyanosis or edema Coding Level of Care Code Est Pt Prev Care >65y(84402) Diagnoses Right shoulder pain M25.511 Annual physical exam Z00.00 Vitamin D deficiency E55.9 Additional Codes LINDSAY-7 Assessment Billing - LINDSAY-7 Assessment Tool: LINDSAY-7 Assessment 12126 ([id number]) Assessment & Plan Assessment & Plan (1) Right shoulder pain: Code(s): M25.511 - Pain in right shoulder Category: Medical Plan: For chronic right shoulder pain x-ray will be obtained, patient will be referred to physical therapy, meloxicam and baclofen prescribed, if the symptoms persist patient will be referred to the orthopedic surgeon (2) Annual physical exam: Code(s): Z00.00 - Encounter for general adult medical examination without abnormal findings Category: Medical Plan: Well-balanced diet regular physical activity discussed with the patient she is up-to-date with the mammogram and colonoscopy, (3) Vitamin D deficiency: Code(s): E55.9 - Vitamin D deficiency, unspecified Category: Medical Plan: Continue vitamin-D supplement Orders: Orders XR shoulder RT min 2V Today M25.511 - Pain in right shoulder PT Evaluation and Treatment Today M25.511 - Pain in right shoulder Lipid Panel 1 Year E55.9 - Vitamin D deficiency, unspecified, Z00.00 - Encounter for general adult medical examination without abnormal findings Vitamin D 25-OH Total 1 Year E55.9 - Vitamin D deficiency, unspecified, Z00.00 - Encounter for general adult medical examination without abnormal findings Comprehensive [place]. Panel Fast 1 Year E55.9 - Vitamin D deficiency, unspecified, Z00.00 - Encounter for general adult medical examination without abnormal findings Complete Blood Count Auto Diff 1 Year E55.9 - Vitamin D deficiency, unspecified, Z00.00 - Encounter for general adult medical examination without abnormal findings Medications: New meloxicam 15 mg PO DAILY 14 tabs 0RF baclofen 10 mg PO BEDTIME 30 tabs 0RF
== END 2024-05-16 08:18 | disposition home or self-care (01) ==
PROVIDERS: PCP Internal Medicine; Visit Provider Internal Medicine
DX: M25.511 Pain in right shoulder (principal); Z00.00 Encounter for general adult medical examination without abnormal findings; E55.9 Vitamin D deficiency, unspecified

== ENCOUNTER → 2024-05-16 07:33 | Outpatient (BNVA) | payer OTHER, SELFPAY | PROVIDERS: PCP Internal Medicine; Visit Provider Internal Medicine | DX: Z00.00 Encounter for general adult medical examination without abnormal findings (principal); G89.29 Other chronic pain; M25.511 Pain in right shoulder; E55.9 Vitamin D deficiency, unspecified; Z79.899 Other long term (current) drug therapy | CPT/HCPCS: 96127 ==

== ENCOUNTER 2024-05-16 08:19 | Outpatient (REF) | payer OTHER, SELFPAY ==
--- NOTE | ~2024-05-16 | XR_ITS ---
EXAMINATION: XR SHOULDER, RIGHT CLINICAL INFORMATION: Pain in right shoulder COMPARISON: Prior shoulder x-ray June 2009 TECHNIQUE: AP external rotation, Grashey, scapular Y, and axillary views of the right shoulder. FINDINGS: There is mild arthrosis of the acromioclavicular joint Glenohumeral joint: Suspect mild arthrosis manifested by subtle marginal osteophyte along the inferior aspect of the humeral head. No definite joint space narrowing. Enthesopathic cysts in the greater tuberosity. XR/XR shoulder RT min 2V IMPRESSION: Mild degenerative changes of the right shoulder. Electronically signed by: Abdirizak Mobley MD 05/22/2024 09:34 AM EDT
== END 2024-05-16 08:20 | disposition home or self-care (01) ==
LOC: HO.HMGCLDS 08:19
PROVIDERS: PCP Internal Medicine; Visit Provider Internal Medicine
DX: M25.511 Pain in right shoulder (principal)
CPT/HCPCS: 73030

== ENCOUNTER 2024-07-01 13:00 | Outpatient (RCR) | payer OTHER, SELFPAY ==
--- NOTE | 2024-05-27 15:15 | MHC.PT.EP ---
[facility] [place] Office [place] Office [place] Office [address] Rasheeda Rivera [address] [phone] F: [phone] F: [phone] F: [phone] F: [phone] Physical Therapy Plan of Care Date of Evaluation: 05/27/24 Date of Surgery: Diagnosis: This is a 63 yo female presenting to skilled PT with a script for R shoulder pain. Assessment: This is a 63 yo female presenting to skilled PT with a script for R shoulder pain. Patient reporting ongoing shoulder pain on and off for a few years now. She feels like her symptoms started at work and have become an overuse injury. Usually it goes away however this past time it did not. Pain increases with reaching up/and over, IR, [place]. Pain ranges from her neck into her upper trap, clavicle, axillary. Pain is grabbing. She has tried meloxicam and baclofen, ice and heat for pain. She has had cortisone in the past but nothing recent. 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 Assessment reveals pain that ranges from up to a 6/10 at the worst. Patient demos decreased R shoulder and cervical ROM, strength of B shoulder's, TTP at anterior GHJ joint line, bicep tendon, subscap, UT and demos impaired posture with forward head and rounded shoulders with anterior GHJ placement on the R. Based on functional limitations, impaired QOL and pain tolerance patient is a good candidate for skilled PT 2x/wk for 4wks. Frequency and Duration: The patient will be seen 2x/wk for 4wks Short Term Goals: (In 2 weeks) Demo I with HEP Improve shoulder AROM by at least 10 degs Demo proper scapular recruitment with appropriate shoulder strengthening exercises Half-Way Goals: (in 4 wks) Improve shoulder nonpainful AROM to almost near equal B Demo at least 1 grade improvement in MMT for shoulder Improve SPADI by at least 10 points Improve overall functional QOL by at least 50% Treatment Plan: Modalities to reduce pain, spasms and effusion. Manual therapy to restore motion and function. Therapeutic exercise to improve strength and flexibility. Neuromuscular re-education for posture and balance. Therapeutic activities to return to functional activities of daily living. Electronically signed by: Vane Nascimento PT Please sign and return to therapist. Thank you for your referral.
--- NOTE | 2024-08-02 09:29 | MHC.PT.DC ---
[facility] [place] Office [place] Office [place] Office [address] Rasheeda Rivera [address] [phone] F: [phone] F: [phone] F: [phone] F: [phone] Physical Therapy Discharge Report Diagnosis: This is a 63 yo female presenting to skilled PT with a script for R shoulder pain. Date of Surgery: Date of Evaluation: 05/27/24 Date of Discharge: 08/02/24 Treatments to Date: 9 Cancellations to Date: 0 No Shows to Date: 0 Discharge Status: Achieved Goals Improved Function Independent with HEP Patient Elected to Stop Discharge Summary: Patient has come to 9 sessions of PT. She demos improved ROM, strength, function and pain tolerance. She has met her goals and is ready for DC at this time. Educated to continue her HEP on her own for further symptom management. Electronically signed by: Vane Nascimento PT Please sign and return to therapist. Thank you for your referral.
== END 2024-08-02 09:29 | disposition home or self-care (01) ==
LOC: HO.PTCHIC 13:00
PROVIDERS: PCP Internal Medicine; Visit Provider Internal Medicine
DX: M25.511 Pain in right shoulder (principal)
CPT/HCPCS: 97110; 97140; 97162

== ENCOUNTER 2024-09-16 11:37 | Outpatient (AMB) | payer OTHER, SELFPAY ==
--- OUTSIDE RECORDS SUMMARY | 2024-09-16 11:40 | XMS_ITS | Patient Health Record ---
Author Organization [facility] Address [address] [place] [address] Care Team Providers Care Supervisor [employer] Name Role Phone Mae Womack MD Primary Care Provider Abbey Velez Unavailable [phone] Allergies Allergen (clinical drug ingredient) Drug/Non Drug Allergy documented on EMR Reaction Allergy Type Onset Date Status Biaxin nausea Drug Allergy Active erythromycin Erythromycin nausea Drug Allergy A ctive shrimp allergenic extract Shrimp (Diagnostic) swell up Drug Allergy Active azithromycin Azithromycin nausea Drug Allergy A ctive Shellfish (FN) Shellfish-derived Products swell up Drug Allergy Active Reason For Referral No Information Medications Medication SIG (Take, Route, Frequency, Duration) Notes Start Date End Date Status Sulfamethoxazole-TMP DS Not-Taking Multi For Her 50+ Ac tive Doxycycline Hyclate Not-Taking Vitamin B12 Active Black Cohosh Not-Son[place] ing Vitamin D3 Not-Takin g Flonase Not-Taking PROzac 10 MG 1 capsule Orally Onc e a day Not-Taking Fluticasone Propionate Not-Taking FLUoxetine HCl Not-T aking Ciprofloxacin HCl No t-Taking oxyCODONE HCl Not-Ta moisés Calcium + D3 Active Immunizations Vaccine Route Administration Date Status Comme nts Influenza Unknown 05/10/2021 Administered COVID-19 Pfizer BioNTech Vaccine Unknown 10/28/2020 Administered Second Dose: Social History Tobacco Use: Social History Observation Description Date Details (start date - stop date) Former Smoker NA - NA Tobacco Use/Smoking Question Answer Notes Are you a: former smoker Additional Findings: Tobacco Non-User Current no n-smoker Alcohol Screen Question Answer Notes Did you have a drink contain ing alcohol in the past year? Yes How often did you have a dri nk containing alcohol in the past year? 2 to 3 times a week (3 points) Points 3 Interpretation Positive Tobacco use other than smoking: Question Answer Notes Are you an other tobacco user? No Problems Problem Type SNOMED Code ICD Code Onset Dates Problem Status W/U Status Risk Notes Problem Acquired hammer toe of right foot (6281614223341 105) Other hammer toe(s) (acquired), right foot (M20.41) Active confirmed Problem Acquired hammer toe of left foot (3415734439199 103) Other hammer toe(s) (acquired), left foot (M20.42) Active confirmed Problem Plantar wart (74045346) Plantar wart (B07.0) Active confirmed Plan Of Treatment No Information Insurance Providers Payer Name Payer Address Payer Phone Subscriber Number Group Number Insured Name Patient Relationship to Insured Coverage Start Date Coverage End Date [employer] [address] [place] [address] [phone] [id number] Sandra Preston Self - patient is the insured Medical (General) History Medical History History ICD Code Arthritis Chicken pox Anxiety Depression chronic sinusitis Mumps Surgical History Surgery Date(Month/Year) carpal tunnel surgery- left and right resendiz nd rotator tear 01/16
[2024-09-16 11:48] VITALS: BP 118/70; PULSE 61; RESP 18; TEMP 36.9; O2SAT 98; BMI 26.0
--- NOTE | 2024-09-16 11:48 | A.OFFPC_ITS ---
Vital Signs 09/16/24 11:48 Height 5 ft 6 in Weight 161 lb BMI 26.0 BP 118/70 Blood Pressure Location Lt brachial Position Sitting Respiration 18 Pulse 61 Pulse Source Pulse Oximeter Temp 98.5 F Temp Source Oral Pulse Oximetry (%) 98 Oxygen Delivery Method Room Air Intake Visit Reasons: F/U sciatic nerve Intake Note: Pt is here today for a sick visit. Pt c/o lower back pain on the L side that goes down her leg. Pt also c/o numbness and tingling in her foot. Pt states that it has been going on for 2 months on and off. Allergies shellfish derived Allergy (Verified 09/16/24 11:57) Anaphylaxis meloxicam Adverse Reaction (Intermediate, Verified 09/16/24 12:33) Diarrhea Medication List - Last Reconciled 09/16/24 by Mae Womack MD biotin (Hair, Skin and Nails (biotin)) mcg PO calcium-vit D3-mag gly-zinc 400 mg-83.3 mcg -166.7 mg caps PO fluoxetine 10 mg PO DAILY ibuprofen 600 mg PO TID multivitamin 1 tab PO DAILY Tobacco use date assessed: 09/16/24 Fall risk assessment: 1 Fall in past year Last assessed Fall Risk: 09/16/24 Dental Screening Dental Screen Date: 09/16/24 Did you have a dental visit in the last 12 months?: Yes Did you have a dental problem in the last 6 months where you did not have access to dental care?: No Was dental information given to patient?: Patient has dentist HPI F/U sciatic nerve HPI Details Pt c/o LBP radiating to buttock LLE for 2 months. Patient reports tingling sensation in the left lower extremity radiating to lateral thigh and foot on and off lasting for a few secs but patient denies any weakness in her lower extremity when going up or down the stairs Pain is worse when patient is sitting for long time. Pt works at [employer] lifting up to 20 lbs. Pt denies pain at night. Patient denies change in bowel bladder function. 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 1. Little interest or pleasure in doing things: not at all 2. Feeling down, depressed, or hopeless: not at all 3. Trouble falling or staying asleep, or sleeping too much: not at all 4. Feeling tired or having little energy: not at all 5. Poor appetite or overeating: not at all 6. Feeling bad about yourself - or that you are a failure or have let yourself or your family down: not at all 7. Trouble concentrating on things, such as reading the newspaper or watching television: not at all 8. Moving or speaking so slowly that other people could have noticed. Or the opposite - being so fidgety or restless that you have been moving around a lot more than usual: not at all 9. Thoughts that you would be better off or of hurting yourself in some way: not at all Total score: 0 Depression Screening Interpretation: Negative Depression Screening Done: Yes 91468 - PHQ-9 Billing: Yes Source: Developed by Drs. Cj Boyle, Rachael Pelaez, Mark Zhou and colleagues, with an educational leeann from [employer]. Thrive Questionnaire Date Thrive assessed: 09/16/24 I am a: Patient What is your living situation today?: I have a steady place to live Within the past 12 months, did the food you bought not last and you didn't have the money to get more?: Never true Within the past 12 months, did you worry whether your food would run out before you got money to buy more?: Never true Do you have trouble paying for medicines?: No Do you have trouble getting transportation to medical appointments?: No Do you have trouble paying your heating and electricity bill?: No Do you have trouble taking care of your child, family member or friend?: No Do you have trouble with day-to-day activities such as bathing, preparing meals, shopping, managing finances, etc.?: No Are you currently unemployed and looking for a job?: No Are you interested in more education?: No Please select the resources that you would like help with: None Currently or been in a relationship where the following occur: No concerns reported THRIVE Score: 0 AUDIT C Alcohol Use Questionnaire (AUDIT-C) 1. How often do you have a drink containing alcohol?: Monthly or less 2. How many drinks containing alcohol do you have on a typical day when you are drinking?: 1 or 2 3. How often do you have six or more drinks on one occasion?: Never Total Score: 1 LINDSAY-7 AMB Questionnaire LINDSAY-7 Date LINDSAY - 7 assessed: 09/16/24 Feeling nervous, anxious, or on edge: 0 = Not at all Not being able to stop or control worryin = Not at all Worrying too much about different things: 0 = Not at all Trouble relaxin = Not at all Being so restless that it is hard to sit still: 0 = Not at all Becoming easily annoyed or irritable: 1 = Several days Source: Developed by Drs. Cj Boyle, Rachael Pelaez, Mark Zhou and colleagues, with an educational leeann from [employer]. LINDSAY-7 Assessment Billing LINDSAY-7 Assessment Tool: LINDSAY-7 Assessment 81336 Review of Systems Const All systems reviewed & are unremarkable except as noted in HPI and below Eyes Reports no additional complaints Card Reports no additional complaints Resp Reports no additional complaints GI Reports no additional complaints Reports no additional complaints Physical exam (Primary Care) Vital Signs: Last Vital Signs Temp 98.5 F 09/16/24 11:48 Pulse 61 09/16/24 11:48 Resp 18 09/16/24 11:48 BP 118/70 09/16/24 11:48 Pulse Ox 98 09/16/24 11:48 Oxygen Delivery Method Room Air 09/16/24 11:48 BMI result Body Mass Index 26.0 Tobacco/Smoking Status: Tobacco use Status Tobacco use date assessed 09/16/24 09/16/24 11:59 Patient Tobacco Use Status Former Tobacco user 09/16/24 11:50 e-Cigarette/Vaping Use Never Used 09/16/24 11:50 PHQ-9: PHQ-9 Score PHQ-9: Total score 0 09/16/24 12:35 Depression Screening Interpretation: Negative Thrive Assessment: Date of Thrive Assessment Date Thrive assessed 09/16/24 09/16/24 11:59 Currently or been in a relationship where the following occur: No concerns reported Const General: no acute distress HENMT Head: Yes normal to inspection Eyes General: appearance normal, both eyes and all related structures Resp Auscultation: clear to auscultation bilaterally Cardio Rhythm: regular rhythm Heart sounds: S1 normal heart sound present and S2 normal heart sound present GI Inspection: Yes normal to inspection Palpation (GI): Soft to palpation Percussion: Yes normal to percussion Auscultation: normal bowel sounds Back/Spine/Pelvis Other: Paraspinal tenderness in the lower lumbar region left more than right, straight leg rising 90 degrees bilaterally, there is tenderness over left SI joint. Motor strength 5/5 bilateral deep tendon reflexes 2+ bilaterally Coding Level of Care Code Est Pt Level 3 (21441) Diagnoses Sciatica M54.30 Additional Codes LINDSAY-7 Assessment Billing - LINDSAY-7 Assessment Tool: LINDSAY-7 Assessment 03812 ([id number]) PHQ-9 - 39817 - PHQ-9 Billing: Yes ([id number]) Assessment & Plan Assessment & Plan (1) Sciatica: Code(s): M54.30 - Sciatica, unspecified side Category: Medical Plan: For worsening of chronic sciatica MRI of lumbar spine will be obtained patient will be referred to PT. Ibuprofen 600 mg t.i.d. and are baclofen prescribed Orders: Orders MR lumbar spine wo con Today M54.30 - Sciatica, unspecified side PT Evaluation and Treatment Today M54.30 - Sciatica, unspecified side Medications: New ibuprofen 600 mg PO TID 30 tabs 0RF
== END 2024-09-16 12:59 | disposition home or self-care (01) ==
PROVIDERS: PCP Internal Medicine; Visit Provider Internal Medicine
DX: M54.30 Sciatica, unspecified side (principal)

== ENCOUNTER → 2024-09-16 11:37 | Outpatient (BNVA) | payer OTHER, SELFPAY | PROVIDERS: PCP Internal Medicine; Visit Provider Internal Medicine | DX: M54.30 Sciatica, unspecified side (principal) | CPT/HCPCS: 96127 ==

== ENCOUNTER → 2024-09-24 12:42 | Outpatient (BNV) | payer OTHER, SELFPAY | PROVIDERS: PCP Internal Medicine; Visit Provider Radiology Diagnostic Radiology | DX: M48.061 Spinal stenosis, lumbar region without neurogenic claudication (principal) | CPT/HCPCS: 72148 ==

== ENCOUNTER 2024-09-24 12:54 | Outpatient (REF) | payer OTHER, SELFPAY ==
--- NOTE | ~2024-09-24 | MR_ITS ---
CLINICAL HISTORY: M54.30 - Sciatica, unspecified side Examination: MRI lumbar spine without intravenous contrast Comparison: None Findings: Plain radiograph correlation: None available 5 mm anterolisthesis of L4 relative to L5.2 mm retrolisthesis of L1 relative to L2. The vertebral body heights are well maintained. No acute or chronic compression deformities are present. The marrow signal is unremarkable. The anterior posterior longitudinal ligament and interspinous ligament are preserved. Paravertebral soft tissues within normal limits. Imaged portion of the retroperitoneum unremarkable. Sacroiliac joints appear normal. The conus demonstrates normal caliber and signal intensity and terminates at L1 level. . Individual intervertebral disc levels as follows: L1-L2: Normal disc height and signal with no discogenic changes. No disc bulge protrusion or extrusion. No central or foraminal stenosis or thecal sac compression. Normal posterior elements. L2-L3: Normal disc height and signal with no discogenic changes. No disc bulge protrusion or extrusion. No central or foraminal stenosis or thecal sac compression. Normal posterior elements. L3-L4: Normal disc height and signal with no discogenic changes. Concentric disc bulge.Mild degenerative facet arthropathy.Mild central and foraminal stenosis. No nerve root impingement L4-L5: Mild loss of disc space height. Mild disc desiccation.Right paracentral disc herniation.Bilateral degenerative facet arthropathy and ligamentum flavum thickening.Moderate central spinal canal stenosis with impingement of the descending nerve roots. There is encroachment of the neural foramina bilaterally. L5-S1: Normal disc height and signal with no discogenic changes. Posterior annular tear. Mild disc bulge.Degenerative facet hypertrophy and ligamentum flavum thickening.Mild central and foraminal stenosis. No nerve root impingement. T12-L1: Normal disc height and signal with no discogenic changes. No disc bulge protrusion or extrusion. No central or foraminal stenosis or thecal sac compression. Normal posterior elements. Impression: 1. Multilevel degenerative spondylosis. There is central and foraminal stenosis and impingement of the descending nerve roots L4-5 level. Associated grade 1 listhesis at this level. 2. Multilevel degenerative disc disease and degenerative spondylosis without evidence of nerve root impingement This document has been electronically signed by: Morgan Washington MD on 09/25/2024 10:40:35
--- OUTSIDE RECORDS SUMMARY | 2024-09-24 15:43 | XMS_ITS | Patient Health Record ---
Author Organization [facility] Address [address] [place] [address] Care Team Providers Care Electrical Cad Technician Name Role Phone Mae Womack MD Primary Care Provider Abbey Velez Unavailable [phone] Allergies Allergen (clinical drug ingredient) Drug/Non Drug [...] Vaccine Route Administration Date Status Comme nts COVID-19 Pfizer BioNTech Vaccine Unknown 10/28/2020 Administered Second Dose: Influenza Unknown 05/10/2021 Administered Social History Tobacco Use: Social History Observation [...] Problem Acquired hammer toe of right foot (0568478745156 105) Other hammer toe(s) (acquired), right foot (M20.41) Active confirmed Problem Acquired hammer toe of left foot ([id number] 103) Other hammer toe(s) (acquired), left foot (M20.42) Active confirmed Problem Plantar wart (41440310) Plantar wart (B07.0) Active confirmed Plan Of Treatment No Information Insurance Providers Payer Name Payer Address Payer Phone Subscriber Number Group Number Insured Name Patient Relationship to Insured Coverage Start Date Coverage End Date C[employer]a [address] [place] [address] [id number] Sandra Preston Self - patient is the insured Medical (General) History Medical History History ICD Code Arthritis Chicken pox Anxiety Depression chronic sinusitis Mumps Surgical History Surgery Date(Month/Year) carpal tunnel surgery- left and right resendiz nd rotator tear 01/16
== END 2024-09-24 12:55 | disposition home or self-care (01) ==
LOC: HO.MRI 12:54
PROVIDERS: PCP Internal Medicine; Visit Provider Internal Medicine
DX: M54.30 Sciatica, unspecified side (principal)
CPT/HCPCS: 72148

== ENCOUNTER 2024-10-07 12:57 | Outpatient (AMB) | payer OTHER, SELFPAY ==
--- NOTE | 2024-10-07 12:59 | HO.SPINEOV ---
Vital Signs 10/07/24 13:06 Height 5 ft 6 in Weight 169 lb BMI 27.3 Intake Visit Reasons: LBP Intake Note: Ms. Preston is here today c/o low back pain. Esl Teacher Required: No Allergies shellfish derived Allergy (Verified 10/07/24 13:06) Anaphylaxis meloxicam Adverse Reaction (Intermediate, Verified 10/07/24 13:06) Diarrhea Physical Exam Vital Signs: BMI result Body Mass Index 27.3 Assessment & Plan Assessment & Plan (1) Lumbar spinal stenosis: Code(s): M48.061 - Spinal stenosis, lumbar region without neurogenic claudication Category: Medical Plan Dear Dr Womack, Thank you for referring Mrs Preston to our office today. She is a very nice 64-year-old female who presents for evaluation of left-sided low back pain radiating into her left buttock region, going down into her posterolateral thigh but also her anterior thigh and anterior tibial region. There is tingling of her top of her foot. She has been dealing with the symptoms of the left-sided low back pain for many years, but the radicular pain going down the leg into the tibial region in the thigh just began a few months ago. She had tried meloxicam but it gave her significant side effects. She has been taking Motrin and doing okay with that but she is reluctant to continue taking it without an endpoint. She just started physical therapy in his been going now for few weeks but it is 40 dollars per visit so it limits how much she can participate. She underwent an MRI of the lumbar spine Fowler showing a grade 1 spondylolisthesis with severe central canal stenosis. Her pain is aggravated with standing but she seems to be okay if she is moving around at her job at the [employer]. As soon as she has to lead technologist in cytogenetics 1 place for any length of time it becomes almost unbearable. She does a lot of lifting at her job and that also seems to aggravate it. PMH: She is very healthy woman for age, history of carpal tunnel in both hands, rotator cuff repair on the left side, trigger finger release in the right hand. Denies any history of heart disease, pulmonary issues, strokes, liver disease, major abdominal issues or surgery, kidney disease, coagulopathies, cancer, diabetes Social hx: She does not smoke, drink use any recreational drugs Medications: Fluoxetine for anxiety as well as vitamins and turmeric Allergies: None Physical exam: Strength, gait and reflexes are normal Imaging review: Lumbar MRI done at [facility] shows grade 1 spondylolisthesis at L4-5 with severe central canal stenosis. 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 She has a spondylolisthesis at L4-5 with severe central canal stenosis. There is some narrowing in the foramen as well at this level. I sat down and reviewed her imaging with her, we went over the nature of her condition at length. She has a degenerative listhesis causing these issues. She does have a component of back pain but it is primarily just left-sided back pain, not centralized back pain. The primary symptom right now is the left leg pain. She is early in the process of conservative management having attended only 2 physical therapy sessions thus far. We know that the insurance companies year old going to limit us surgically until she has completed a thorough rigorous conservative course, so I recommended she continue the therapy for another few months as much as she can financially tolerate. Also, she has a trip coming up to [place] and I am going to send her to Dr. Fuentes to see if they can do an injection for her before she goes. I think a left L4 and left L5 TFE would be optimal but will defer to dr Fuentes if he thinks and central epidural or caudal is better. I would like to see her back the 1st week of November. I will also get a set of standing flexion-extension x-rays to clarify the nature of the spondylolisthesis and any occult instability. We did briefly discuss what surgery would entail if it gets to that point. Thank you for allowing us to care for your patient. The total time spent with this visit with this patient was 45 minutes reviewing history, physical exam, lumbar imaging review, and implementation of treatment plan or further diagnostic testing Manuel Lester MD,PhD [facility] Orders: Orders XR lumbar spine 4V min Today M48.061 - Spinal stenosis, lumbar region without neurogenic claudication Referrals Physiatry Referral M48.061 - Spinal stenosis, lumbar region without neurogenic claudication Coding Level of Care Code New Pt Level 4 (29443) Diagnoses Lumbar spinal stenosis M48.061
[2024-10-07 13:06] VITALS: BMI 27.3
--- OUTSIDE RECORDS SUMMARY | 2024-10-07 14:31 | XMS_ITS | Patient Health Record ---
Author Organization [facility] Address [address] [place] [address] Care Team Providers Care Disability Rater Name Role Phone Mae Womack MD Primary Care Provider Abbey Velez Unavailable [phone] Allergies Allergen (clinical drug ingredient) Drug/Non Drug [...] Problem Acquired hammer toe of right foot ([id number] 105) Other hammer toe(s) (acquired), right foot (M20.41) Active confirmed Problem Acquired hammer toe of left foot ([id number] 103) Other hammer toe(s) (acquired), left foot (M20.42) Active confirmed Problem Plantar wart ([id number]) Plantar wart (B07.0) Active confirmed Plan Of Treatment No Information Insurance Providers Payer Name Payer Address Payer Phone Subscriber Number Group Number Insured Name Patient Relationship to Insured Coverage Start Date Coverage End Date Cigna [address] [place] [address] [phone] [id number] Sandra Preston Self - patient is the insured Medical (General) History Medical History History ICD Code Arthritis Chicken pox Anxiety Depression chronic sinusitis Mumps Surgical History Surgery Date(Month/Year) carpal tunnel surgery- left and right resendiz nd rotator tear 01/16
== END 2024-10-07 13:55 | disposition home or self-care (01) ==
PROVIDERS: PCP Internal Medicine; Referring Provider Internal Medicine; Visit Provider Physician Assistant
DX: M48.061 Spinal stenosis, lumbar region without neurogenic claudication (principal)
CPT/HCPCS: 99204

== ENCOUNTER 2024-10-07 12:57 | Outpatient (REF) | payer OTHER, SELFPAY ==
--- NOTE | ~2024-10-07 | XR_ITS ---
EXAMINATION: XR LUMBOSACRAL SPINE CLINICAL INFORMATION: M48.061 - Spinal stenosis, lumbar region without neurogenic claudication COMPARISON: Correlation made with MR lumbar 09/24/2024 TECHNIQUE: 4 views of the lumbar spine, inclusive of flexion and extension views, were obtained. FINDINGS: There is a minimal levoconvex scoliosis, possibly positional. There is a mildly exaggerated lordosis. There is no fracture, compression deformity, or suspicious bone lesion. There is moderate diffuse disc space degeneration with relative sparing of L2-3. There are multilevel degenerative facet changes most notable at L3-S1. Neutral view demonstrates a 3 mm retrolisthesis of L1 on L2, and the 8 mm anterolisthesis of L4 on L5. There appears to be a left-sided pars defect. Alignment is otherwise anatomic. On flexion exam, the L4-5 anterolisthesis minimally increases to 9 mm. No new subluxation. On extension exam, there is L4-5 reduction to 8 mm anterolisthesis. No new subluxation. There is no evidence of instability. XR/XR lumbar spine 4V min IMPRESSION: 1. No acute bony abnormalities. Moderate degenerative spondylosis of the lumbar spine. 2. Grade 1, 8 mm anterolisthesis of L4 on L5 with associated left-sided pars defect. No definite instability on flexion and extension view. Electronically signed by: Jesu Sky MD 10/08/2024 11:30 AM EDT
== END 2024-10-07 12:58 | disposition home or self-care (01) ==
LOC: HO.HOSX 12:57
PROVIDERS: PCP Internal Medicine; Referring Provider Internal Medicine; Visit Provider Physician Assistant
DX: M48.061 Spinal stenosis, lumbar region without neurogenic claudication (principal)
CPT/HCPCS: 72110

== ENCOUNTER → 2024-10-07 13:58 | Outpatient (BNV) | payer OTHER, SELFPAY | PROVIDERS: PCP Internal Medicine; Referring Provider Internal Medicine; Visit Provider Radiology Diagnostic Radiology | DX: M47.816 Spondylosis without myelopathy or radiculopathy, lumbar region (principal) | CPT/HCPCS: 72110 ==

== ENCOUNTER 2024-10-22 13:00 | Outpatient (RCR) | payer OTHER, SELFPAY ==
--- NOTE | 2024-09-27 07:53 | MHC.PT.EP ---
[facility] [place] Office [place] Office [place] Office [address] Rasheeda Rivera [address] [phone] F: [phone] F: [phone] F: [phone] F: [phone] Physical Therapy Plan of Care Date of Evaluation: 09/27/24 Date of Surgery: none Diagnosis: sciatica Assessment: Patient is a 64 year old R handed female who presents with s/s consistent with sciatica, low back pain. She works with daily job demands including [employer]. Patient past medical history includes anxiety and diverticulitis. Current impairments include pain, posture, body mechanics, ROM, strength, activity tolerance and functional mobility. Functional limitations include decreased ability to stand, walk, bend, lift and turn. Patient is motivated with good rehab potential. Skilled PT will address impairments and functional limitations in order to achieve goals. Frequency and Duration: The patient will be seen 2x/week for 5 weeks Short Term Goals: I with HEP - 2 weeks AROM rotation 75% and pain free - 3 weeks Centralized s/s - 3 weeks Assisted Goals: 90/90 lacking 25 or less - 5 weeks Oswestry < 10 % - 5 weeks Able to complete work shift with 2/10 max pain - 5 weeks Demo proper floor to waist lift mechanics without cues - 5 weeks. Treatment Plan: Modalities to reduce pain, spasms and effusion. Manual therapy to restore motion and function. Therapeutic exercise to improve strength and flexibility. Neuromuscular re-education for posture and balance. Therapeutic activities to return to functional activities of daily living. Electronically signed by: Saúl Coley, PT Please sign and return to therapist. Thank you for your referral.
--- NOTE | 2024-10-11 13:28 | MHC.PT.EP ---
[facility] [place] Office [place] Office [place] Office [address] Rasheeda Rivera [address] [phone] F: [phone] F: [phone] F: [phone] F: [phone] Physical Therapy Plan of Care Date of Evaluation: 09/27/24 Date of Surgery: none Diagnosis: sciatica Assessment: Patient is a 64 year old R handed female who presents with s/s consistent with sciatica, low back pain. She works with daily job demands including [employer]. Patient past medical history includes anxiety and diverticulitis. Current impairments include pain, posture, body mechanics, ROM, strength, activity tolerance and functional mobility. Functional limitations include decreased ability to stand, walk, bend, lift and turn. Patient is motivated with good rehab potential. Skilled PT will address impairments and functional limitations in order to achieve goals. Frequency and Duration: The patient will be seen 2x/week for 5 weeks Short Term Goals: I with HEP - 2 weeks AROM rotation 75% and pain free - 3 weeks Centralized s/s - 3 weeks Half-Way Goals: 90/90 lacking 25 or less - 5 weeks Oswestry < 10 % - 5 weeks Able to complete work shift with 2/10 max pain - 5 weeks Demo proper floor to waist lift mechanics without cues - 5 weeks. Treatment Plan: Modalities to reduce pain, spasms and effusion. Manual therapy to restore motion and function. Therapeutic exercise to improve strength and flexibility. Neuromuscular re-education for posture and balance. Therapeutic activities to return to functional activities of daily living. Electronically signed by: Saúl Coley, PT Please sign and return to therapist. Thank you for your referral.
--- NOTE | 2025-02-07 09:45 | MHC.PT.DC ---
[facility] [place] Office [place] Office [place] Office [address] Rasheeda Rivera [address] [phone] F: [phone] F: [phone] F: [phone] F: [phone] Physical Therapy Discharge Report Diagnosis: sciatica Date of Surgery: none Date of Evaluation: 09/27/24 Date of Discharge: Treatments to Date: 5 Cancellations to Date: No Shows to Date: Discharge Status: Independent with HEP Patient Elected to Stop Discharge Summary: 10/22/24: issued bands and discussed HEP. she still has significant tenderness and irritable s/s. she is receiving a shot and traveling through [place]. She will call back as able/needed. 10/16/24: pt with significant discomfort. added manual intervention and gentle stretching. physiatry appt today. assess response. 10/11/24: pt with s/s down leg intermittently today. compliant with HEP. to re-work HEP NV. 10/01/24: pt progressing well, compliant with HEP. however, in pain from work day. reduced discomfort after treatment but still dealing with L LE s/s. Patient is a 64 year old R handed female who presents with s/s consistent with sciatica, low back pain. She works with daily job demands including [employer]. Patient past medical history includes anxiety and diverticulitis. Current impairments include pain, posture, body mechanics, ROM, strength, activity tolerance and functional mobility. Functional limitations include decreased ability to stand, walk, bend, lift and turn. Patient is motivated with good rehab potential. Skilled PT will address impairments and functional limitations in order to achieve goals. Electronically signed by: Saúl Coley, PT Please sign and return to therapist. Thank you for your referral.
== END 2025-02-07 09:46 | disposition home or self-care (01) ==
LOC: HO.PTCHIC 13:00
PROVIDERS: PCP Internal Medicine; Visit Provider Internal Medicine
DX: M54.30 Sciatica, unspecified side (principal)
CPT/HCPCS: 97110; 97112; 97140; 97162

== ENCOUNTER 2025-05-20 06:35 | Outpatient (REF) | payer MEDICARE, SELFPAY ==
--- OUTSIDE RECORDS SUMMARY | 2025-05-20 06:39 | XMS_ITS | Patient Health Record ---
Author Organization [facility] Address [address] [place] [address] Care Team Providers Care It Service Continuity Supervisor Name Role Phone Mae Womack MD Primary Care Provider Abbey Velez Unavailable [phone] Allergies Allergen (clinical drug ingredient) Drug/Non Drug [...] Problem Acquired hammer toe of right foot (9642565695830 105) Other hammer toe(s) (acquired), right foot (M20.41) Active confirmed Problem Acquired hammer toe of left foot (3317622978940 103) Other hammer toe(s) (acquired), left foot (M20.42) Active confirmed Problem Plantar wart (93964102) Plantar wart (B07.0) Active confirmed Plan Of Treatment No Information Insurance Providers Payer Name Payer Address Payer Phone Subscriber Number Group Number Insured Name Patient Relationship to Insured Coverage Start Date Coverage End Date Cigna [address] [place] [address] [phone] [id number] Sandra Preston Self - patient is the insured Medical (General) History Medical History History ICD Code Arthritis Chicken pox Anxiety Depression chronic sinusitis Mumps Surgical History Surgery Date(Month/Year) carpal tunnel surgery- left and right resendiz nd rotator tear 01/16
[2025-05-20 10:46] LABS: MANUAL DIFF FLAG NO
[2025-05-20 10:54] LABS: Hematocrit 44.5 % (37.0-47.0); Hemoglobin 15.1 g/dl (12.0-16.0); Imm Gran Abs Auto 0.02 X10*3/uL (0.00-0.03); Imm Gran Pct Auto 0.4 % (0.0-0.4); Lymphocytes Absolute Auto 1.2 X10*3/uL (1.2-4.9); Mean Corpuscular HGB Conc 33.9 g/dl (31.0-35.0); Mean Corpuscular Hemoglobin 30.8 pg (27.0-33.0); Mean Corpuscular Volume 90.8 fL (80.0-98.0); NRBC Abs Auto 0.000 X10*3/uL (0.0-0.012); NRBC Pct Auto 0.0 /100WBC (0.0-0.2); Platelet Count 172 X10*3/uL (160-400); Red Blood Count 4.90 X10*6/uL (4.20-5.50); White Blood Count 5.2 X10*3/uL (4.8-10.8)
[2025-05-20 12:50] LABS: Alanine Aminotransferase 20 U/L (0-31); Albumin Level 4.5 g/dL (3.5-5.0); Alkaline Phosphatase 75 U/L (39-117); Anion Gap 9 (12-20); Aspartate Amino Transferase 26 U/L (5-31); Blood Urea Nitrogen 13 mg/dL (9-16); Calcium 9.4 mg/dL (8.4-10.2); Carbon Dioxide 29 mmol/L (22-29); Chloride 108 mmol/L (96-108); Cholesterol 208 mg/dL (<200); Estimated Glomerular Filt Rate > 60; HDL Cholesterol 60 mg/dL (>40); Potassium 4.1 mmol/L (3.3-5.1); Sodium 142 mmol/L (135-145); Total Protein 7.2 g/dL (6.5-8.0); Triglycerides 132 mg/dL (<150)
== END 2025-05-20 06:36 | disposition home or self-care (01) ==
LOC: HO.HMGCLDS 06:35
PROVIDERS: PCP Internal Medicine; Visit Provider Internal Medicine
DX: Z00.00 Encounter for general adult medical examination without abnormal findings (principal); E55.9 Vitamin D deficiency, unspecified; Z13.6 Encounter for screening for cardiovascular disorders
CPT/HCPCS: 36415; 80053; 80061; 82306; 85025

== ENCOUNTER 2025-05-22 07:55 | Outpatient (AMB) | payer OTHER, SELFPAY ==
--- OUTSIDE RECORDS SUMMARY | 2025-05-22 07:58 | XMS_ITS | Patient Health Record ---
Author Organization [facility] Address [address] [place] [address] Care Team Providers Care Dinkey Skinner Name Role Phone Mae Womack MD Primary Care Provider Abbey Velez Unavailable [phone] Allergies Allergen (clinical drug ingredient) Drug/Non Drug [...] Problem Acquired hammer toe of right foot ([id number] 105) Other hammer toe(s) (acquired), right foot (M20.41) Active confirmed Problem Acquired hammer toe of left foot (8850289271298 103) Other hammer toe(s) (acquired), left foot (M20.42) Active confirmed Problem Plantar wart (46902565) Plantar wart (B07.0) Active confirmed Plan Of Treatment No Information Insurance Providers Payer Name Payer Address Payer Phone Subscriber Number Group Number Insured Name Patient Relationship to Insured Coverage Start Date Coverage End Date Cigna [address] [place] [address] [id number] Sandra Preston Self - patient is the insured Medical (General) History Medical History History ICD Code Arthritis Chicken pox Anxiety Depression chronic sinusitis Mumps Surgical History Surgery Date(Month/Year) carpal tunnel surgery- left and right resendiz nd rotator tear 01/16
--- NOTE | 2025-05-22 08:00 | MHC.PC.OV ---
Vital Signs 05/22/25 08:01 Height 5 ft 6 in Weight 164 lb BMI 26.5 BP 128/68 Blood Pressure Location Lt brachial Position Sitting Respiration 15 Pulse 58 Pulse Source Pulse Oximeter Temp 98.7 F Temp Source Oral Pulse Oximetry (%) 99 Oxygen Delivery Method Room Air Intake Visit Reasons: Annual PE Intake Note: Pt is here today for her PE Allergies shellfish derived Allergy (Verified 10/07/24 13:06) Anaphylaxis meloxicam Adverse Reaction (Intermediate, Verified 10/07/24 13:06) Diarrhea Medication List - Last Reconciled 05/22/25 by Mae Womack MD calcium-vit D3-mag gly-zinc 400 mg-83.3 mcg -166.7 mg caps PO fluoxetine 10 mg PO DAILY ibuprofen 600 mg PO TID ketoconazole 2% 1 appl topical DAILY multivitamin 1 tab PO DAILY Tobacco use date assessed: 05/22/25 Fall risk assessment: 2 + Falls in past year Last assessed Fall Risk: 05/22/25 Dental Screening Dental Screen Date: 05/22/25 Did you have a dental visit in the last 12 months?: Yes Did you have a dental problem in the last 6 months where you did not have access to dental care?: No Was dental information given to patient?: Patient has dentist HPI Annual PE HPI Details Pt presents for PE. Patient retired in February and has been enjoying her prison time. Patient has been walking twice a day and denies any recurrent lower back pain or sciatica. [facility] Medical History (Updated 05/22/25 @ 08:20 by Mae Womack MD) Hx of screening mammography Diverticulosis Seasonal allergies Thumb pain Normal Pap smear Annual physical exam Anxiety Environmental allergies Surgical History Hx of colonoscopy H/O shoulder surgery History of carpal tunnel surgery Family History Father Hypertension Diabetes Mother Cancer Social History Housing: House Alcohol intake: current Alcohol intake frequency: a few times a week Patient Tobacco Use Status: Former Tobacco user e-Cigarette/Vaping Use: Never Used service: No Current occupational status: employed 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 1. Little interest or pleasure in doing things: not at all 2. Feeling down, depressed, or hopeless: not at all 3. Trouble falling or staying asleep, or sleeping too much: not at all 4. Feeling tired or having little energy: not at all 5. Poor appetite or overeating: not at all 6. Feeling bad about yourself - or that you are a failure or have let yourself or your family down: not at all 7. Trouble concentrating on things, such as reading the newspaper or watching television: not at all 8. Moving or speaking so slowly that other people could have noticed. Or the opposite - being so fidgety or restless that you have been moving around a lot more than usual: not at all 9. Thoughts that you would be better off or of hurting yourself in some way: not at all Total score: 0 Depression Screening Interpretation: Negative Depression Screening Done: Yes Source: Developed by Drs. Cj Boyle, Rachael Pelaez, Mark Zhou and colleagues, with an educational leeann from [employer]. Thrive Questionnaire Date Thrive assessed: 09/13/24 I am a: Patient What is your living situation today?: I have a steady place to live Within the past 12 months, did the food you bought not last and you didn't have the money to get more?: Never true Within the past 12 months, did you worry whether your food would run out before you got money to buy more?: Never true Do you have trouble paying for medicines?: No Do you have trouble getting transportation to medical appointments?: No Do you have trouble paying your heating and electricity bill?: No Do you have trouble taking care of your child, family member or friend?: No Do you have trouble with day-to-day activities such as bathing, preparing meals, shopping, managing finances, etc.?: No Are you currently unemployed and looking for a job?: No Are you interested in more education?: No Please select the resources that you would like help with: None Currently or been in a relationship where the following occur: No concerns reported THRIVE Score: 0 AUDIT C Alcohol Use Questionnaire (AUDIT-C) 1. How often do you have a drink containing alcohol?: Monthly or less 2. How many drinks containing alcohol do you have on a typical day when you are drinking?: 1 or 2 3. How often do you have six or more drinks on one occasion?: Never Total Score: 1 LINDSAY-7 AMB Questionnaire LINDSAY-7 Date LINDSAY - 7 assessed: 09/16/24 Feeling nervous, anxious, or on edge: 0 = Not at all Not being able to stop or control worryin = Not at all Worrying too much about different things: 0 = Not at all Trouble relaxin = Not at all Being so restless that it is hard to sit still: 0 = Not at all Becoming easily annoyed or irritable: 1 = Several days Source: Developed by Drs. Cj Boyle, Rachael Pelaez, Mark Zhou and colleagues, with an educational leeann from [employer]. Review of Systems Const All systems reviewed & are unremarkable except as noted in HPI and below Eyes Reports no additional complaints ENT Reports no additional complaints Card Reports no additional complaints Resp Reports no additional complaints GI Reports no additional complaints Reports no additional complaints Musc Reports no additional complaints Physical exam (Primary Care) Vital Signs: Last Vital Signs Temp 98.7 F 05/22/25 08:01 Pulse 58 05/22/25 08:01 Resp 15 05/22/25 08:01 BP 128/68 05/22/25 08:01 Pulse Ox 99 05/22/25 08:01 Oxygen Delivery Method Room Air 05/22/25 08:01 BMI result Body Mass Index 26.5 Tobacco/Smoking Status: Tobacco use Status Tobacco use date assessed 05/22/25 05/22/25 08:06 Patient Tobacco Use Status Former Tobacco user 05/22/25 08:06 e-Cigarette/Vaping Use Never Used 05/22/25 08:06 PHQ-9: PHQ-9 Score PHQ-9: Total score 0 05/22/25 08:06 Depression Screening Interpretation: Negative Thrive Assessment: Date of Thrive Assessment Date Thrive assessed 09/13/24 05/22/25 08:06 Currently or been in a relationship where the following occur: No concerns reported Const General: no acute distress HENMT Head: Yes normal to inspection General nose exam: Normal external nose present Face and sinus: Yes normal facial exam Throat: Yes posterior oropharynx normal Neck Neck: Yes no lymphadenopathy and Yes supple Resp Effort & Inspection: normal respiratory effort Auscultation: clear to auscultation bilaterally Cardio Rhythm: regular rhythm Heart sounds: S1 normal heart sound present and S2 normal heart sound present GI Inspection: Yes normal to inspection Palpation (GI): Soft to palpation Percussion: Yes normal to percussion Auscultation: normal bowel sounds Coding Level of Care Code Est Pt Prev Care >65y(29954) Diagnoses Annual physical exam Z00.00 Assessment & Plan Assessment & Plan (1) Annual physical exam: Comment: DEXA by functional consultant Code(s): Z00.00 - Encounter for general adult medical examination without abnormal findings Category: Medical Plan: Well-balanced diet regular physical activity discussed with the patient. She is up-to-date with the mammogram colonoscopy Pap smear. Chronic anxiety stable on fluoxetine. Patient will return for physical in 1 year Orders: Orders Complete Blood Count Auto Diff 1 Year E55.9 - Vitamin D deficiency, unspecified, Z00.00 - Encounter for general adult medical examination without abnormal findings UA w Microscopic 1 Year E55.9 - Vitamin D deficiency, unspecified, Z00.00 - Encounter for general adult medical examination without abnormal findings Comprehensive [place]. Panel Fast 1 Year E55.9 - Vitamin D deficiency, unspecified, Z00.00 - Encounter for general adult medical examination without abnormal findings Lipid Panel 1 Year E55.9 - Vitamin D deficiency, unspecified, Z00.00 - Encounter for general adult medical examination without abnormal findings TSH reflex Free T4 1 Year E55.9 - Vitamin D deficiency, unspecified, Z00.00 - Encounter for general adult medical examination without abnormal findings Vitamin D 25-OH Total 1 Year E55.9 - Vitamin D deficiency, unspecified, Z00.00 - Encounter for general adult medical examination without abnormal findings Medications: New ketoconazole 2% 1 appl topical DAILY 60 grams 1RF
[2025-05-22 08:01] VITALS: BP 128/68; PULSE 58; RESP 15; TEMP 37.1; O2SAT 99; BMI 26.5
== END 2025-05-22 08:27 | disposition home or self-care (01) ==
LOC: HO.HMCC 07:56
PROVIDERS: PCP Internal Medicine; Visit Provider Internal Medicine
DX: Z00.00 Encounter for general adult medical examination without abnormal findings (principal)